=== PATIENT | female | born 1945 | race Caucasian/White ===

== ENCOUNTER 2016-12-22 03:45 | Inpatient (IN) ==
--- NOTE | 2016-12-22 04:31 | PROVIDER DOCUMENTATION ---
HPI-Neurological Disorder - General Chief Complaint: General Adult Stated Complaint: MUSCLE SPASM Time Seen by Provider: 12/22/16 04:01 Source: patient Allergies/Adverse Reactions: Patient Allergies Allergy/AdvReac Type Severity Reaction Status Date / Time Iodinated Contrast Media - AdvReac Severe NAUSEA/VOMI Verified 12/22/16 04:22 Oral and TING Home Medications: Home Medication List Medication Instructions Recorded Confirmed Last Taken Type Albuterol Sulfate Inhaler 2 puff INH 4XDAY PRN PRN #1 inhaler 05/20/14 12/22/16 12/21/16 Rx [Ventolin Hfa] Rivaroxaban [Xarelto] 20 mg PO WSUPPER #30 tablet 05/20/14 12/22/16 12/21/16 Rx Escitalopram [Lexapro] 10 mg PO DAILY #0 tablet 03/12/15 12/22/16 12/21/16 Rx Gabapentin [Neurontin] 300 mg PO TID #0 capsule 03/12/15 12/22/16 12/21/16 Rx Omeprazole [Prilosec] 20 mg PO DAILY@0700 #0 capsule 03/12/15 12/22/16 12/21/16 Rx Diltiazem HCl [Cardizem Cd] 180 mg PO DAILY 10/16/15 12/22/16 12/21/16 History Losartan/Hydrochlorothiazide 1 each PO DAILY 10/16/15 12/22/16 12/21/16 History [Losartan-Hctz 50-12.5 mg Tab] Metoprolol Succinate E.r. [Toprol 50 mg PO DAILY 10/16/15 12/22/16 12/21/16 History Xl] Amiodarone [Cordarone] 200 mg PO BID #0 tablet 10/19/15 12/22/16 12/20/16 Rx Hydrocodone/Acetaminophen [Sharon 1 each PO Q8H PRN PRN #0 10/19/15 12/22/16 Rx 7.5-325 Tablet] Furosemide [Lasix] 40 mg PO DAILY #30 tablet 10/20/15 12/22/16 12/21/16 Rx - History of Present Illness-Neuro Nature of Presenting Problem: 71 yo WF felt well until about 3 pm yesterday when she developed a gross tremor but no motor weakness or change in mentation. Her legs began to hurt around 2 am at which point she called an ambulance. Denies prior history of CVA. Review of Systems - Adult - REVIEW OF SYSTEMS - ADULT Constitutional: reports: no symptoms reported Eyes: reports: no symptoms reported Ears, Nose, Mouth & Throat: reports: no symptoms reported Cardiovascular: reports: no symptoms reported Respiratory: reports: no symptoms reported Gastrointestinal: reports: no symptoms reported Genitourinary: reports: no symptoms reported Musculoskeletal: reports: no symptoms reported Integumentary: reports: no symptoms reported Neurological: reports: see HPI, ataxia, loss of balance, tremors Psychiatric: reports: no symptoms reported Endocrine: reports: no symptoms reported Hematologic/Lymphatic: reports: no symptoms reported Allergic/Immunologic: reports: no symptoms reported Past History - Adult - PAST MEDICAL HISTORY-ADULT Review of Records: reports: Old Records Reviewed, Nursing Assessment Review, Medications Reviewed Major Childhood Illnesses: reports: denies history Cardiovascular: reports: A-Fib, HTN, PR (x2) Respiratory: reports: COPD Gastrointestinal: reports: GERD - PRIOR SURGERIES/PROCEDURES Surgical/Procedure History: reports: hysterectomy, orthopedic (extremity) (left arm Sx), other (heart cath) - IMMUNIZATION STATUS Childhood Immunizations: See Nurse Assessment Flu Vaccine: See Nurse Assessment Physical Exam- Neurological - Physical Exam-Neuro Initial Vital Signs Reviewed: Yes General Appearance: appears well, alert, no apparent distress Eye Exam: bilateral eye: normal inspection HENMT: normal ENT inspection Head Injury: no evidence of injury Neck: non-tender, full range of motion Respiratory: chest non-tender, lungs clear, normal breath sounds Cardiovascular: normal peripheral pulses, regular rate, rhythm Abdominal Exam: non tender, soft, no organomegaly Lymphatic: no adenopathy Extremity: normal range of motion, non-tender communications officer Exam: normal hearing, normal speech, PERRL. negative: abnormal eye position Coordination/Gait: ABN nose to finger (R), ABN nose to finger (L). negative: normal finger to nose, normal gait Motor/Sensory: no motor deficit, no sensory deficit, no pronator drift Neurologic: communications officer II-XII nml as tested, grossly normal Integumentary: normal color, normal turgor Psych/Mental Status: normal mood/affect Progress - PLAN OF CARE/RESULTS Progress/Plan/Lab Results: Vital Signs - 8 hr 12/22/16 04:07 12/22/16 06:07 12/22/16 08:15 Temperature 97.6 F Pulse Rate 56 L 50 L 53 L Respiratory Rate 26 H 19 22 Blood Pressure 125/50 94/61 108/50 O2 Sat by Pulse Oximetry 97 93 L 95 Laboratory Results - last 24 hr 12/22/16 12/22/16 12/22/16 03:59 03:59 05:05 WBC 7.91 RBC 4.08 L Hgb 10.8 L Hct 32.7 L MCV 80.1 L MCH 26.5 L MCHC 33.0 RDW Std Deviation 16.2 H Plt Count 366 MPV 11.8 H Immature Gran % (Auto) 0.3 Neut % (Auto) 56.7 Lymph % (Auto) 32.7 Vance % (Auto) 8.6 Eos % (Auto) 1.1 Baso % (Auto) 0.6 Immature Gran # (Auto) 0.02 Neut # (Auto) 4.48 Lymph # (Auto) 2.59 Vance # (Auto) 0.68 H Eos # (Auto) 0.09 Baso # (Auto) 0.05 Sodium 134 L Potassium 3.0 L Chloride 91 L Carbon Dioxide 25 Anion Gap 18 BUN 29 H Creatinine 2.2 H Estimated GFR/1.73 m2 22 BUN/Creatinine Ratio 13 Glucose 87 Calculated Osmolality 273 Calcium 9.1 Total Bilirubin 0.59 AST 40 H ALT 30 Alkaline Phosphatase 127 H Total Protein 7.2 Albumin 3.9 Globulin 3.3 Albumin/Globulin Ratio 1.2 Urine Source CLEAN CATCH Urine Color YELLOW Urine Turbidity CLEAR Urine pH 5.5 Ur Specific [place] 1.009 Urine Protein NEGATIVE Ur Glucose (Stick) NEGATIVE Ur Ketones (Stick) NEGATIVE Urine Blood NEGATIVE Urine Nitrite NEGATIVE Urine Bilirubin NEGATIVE Urobilinogen Dipstick NORMAL Urine Leukocytes TRACE A Urine WBC (Auto) <10 Urine RBC (Auto) <10 U Epithel Cells (Auto) <10 Urine Bacteria (Auto) NEGATIVE Urine Opiates Screen Ur Oxycodone Screen Ur Methadone, Qual Ur Barbiturates Screen Ur Phencyclidine Scrn Ur Amphetamines Screen U Benzodiazepines Scrn Urine Cocaine Screen U Cannabinoids Screen 12/22/16 05:05 WBC RBC Hgb Hct MCV MCH MCHC RDW Std Deviation Plt Count MPV Immature Gran % (Auto) Neut % (Auto) Lymph % (Auto) Vance % (Auto) Eos % (Auto) Baso % (Auto) Immature Gran # (Auto) Neut # (Auto) Lymph # (Auto) Vance # (Auto) Eos # (Auto) Baso # (Auto) Sodium Potassium Chloride Carbon Dioxide Anion Gap BUN Creatinine Estimated GFR/1.73 m2 BUN/Creatinine Ratio Glucose Calculated Osmolality Calcium Total Bilirubin AST ALT Alkaline Phosphatase Total Protein Albumin Globulin Albumin/Globulin Ratio Urine Source Urine Color Urine Turbidity Urine pH Ur Specific [place] Urine Protein Ur Glucose (Stick) Ur Ketones (Stick) Urine Blood Urine Nitrite Urine Bilirubin Urobilinogen Dipstick Urine Leukocytes Urine WBC (Auto) Urine RBC (Auto) U Epithel Cells (Auto) Urine Bacteria (Auto) Urine Opiates Screen NONE DETECTED Ur Oxycodone Screen NONE DETECTED Ur Methadone, Qual NONE DETECTED Ur Barbiturates Screen NONE DETECTED Ur Phencyclidine Scrn NONE DETECTED Ur Amphetamines Screen NONE DETECTED U Benzodiazepines Scrn NONE DETECTED Urine Cocaine Screen NONE DETECTED U Cannabinoids Screen PRESUMPTIVE POSITIVE A Orders Category Date Time Status Regular Diet Diet 12/22/16 07:25 Active HEAD W/O CONTRAST [CT] Stat Exams 12/22/16 04:20 Completed CBC WITH ELECTRONIC DIFF [HEME] Stat Lab 12/22/16 03:59 Completed COMPREHENSIVE METABOLIC PANEL [CHEM] Stat Lab 12/22/16 03:59 Completed UA NIMS W/REFLEX CULT [URINALYSIS] Stat Lab 12/22/16 05:05 Completed URINE DRUG SCREEN Stat Lab 12/22/16 05:05 Completed Transfer/Admit Order [TRANSFER] Routine Transfer 12/22/16 08:23 Ordered Result Diagrams: 12/22/16 03:59 12/22/16 03:59 Departure - Departure Date of Disposition Decision: 12/22/16 Time of Disposition Decision: 08:29 DIAGNOSIS: Tremors of nervous system, Weakness Disposition: ADMITTED INPATIENT 09 Certified Medical Emergency: Emergent Condition: Stable - Critical Care Note This patient required my direct & personal management of CC.: No Attestation - Physician/ CAYDEN Attestation The physician spent face to face time with patient:: Yes Advanced Practice Provider documentation review:: The physician spent face to face time with this patient and agrees with all MLP documentation, treatment, and medical decision making by the MLP. See provider notes for further information.
[2016-12-22 04:37] LABS: MANUAL DIFF NEEDED? NO
[2016-12-22 05:31] LABS: ALBUMIN 3.9 g/dL (3.5-5.0); CALCIUM 9.1 mg/dL (8.8-10.2); TOTAL BILIRUBIN 0.59 mg/dL (0.20-1.00); TOTAL PROTEIN 7.2 g/dL (6.3-8.3)
[2016-12-22 05:35] LABS: URINE CULTURE NEEDED? NO; URINE MICRO REVIEW NEEDED? NO; URINE SOURCE CLEAN CATCH
[2016-12-22 05:40] LABS: BASO% 0.6 % (0.0-0.8); EOS# 0.09 X1000 (0.0-0.7); EOS% 1.1 % (0.0-10.0); HEMATOCRIT 32.7 % (37.0-47.0); HEMOGLOBIN 10.8 g/dL (12.0-16.0); IMM GRAN# 0.02 X1000 (0.0-0.04); IMM GRAN% 0.3 % (0.0-0.5); LYMPH# 2.59 X1000 (1.2-3.4); LYMPH% 32.7 % (20.5-51.1); MCH 26.5 PG (27-31); MCV 80.1 FL (81-99); MONO# 0.68 X1000 (0.11-0.59); MONO% 8.6 % (1.7-9.3); MPV 11.8 FL (7.4-10.4); NEUT% 56.7 % (42.2-75.2); PLT 366 X1000 (130-400); RBC 4.08 XMIL (4.2-5.4)
[2016-12-22 05:40] LABS: BILIRUBIN URINE NEGATIVE (NEGATIVE); BLOOD URINE NEGATIVE (NEGATIVE); COLOR YELLOW; GLUCOSE URINE NEGATIVE (NEGATIVE); LEUKOCYTES URINE TRACE (NEGATIVE); NITRITE URINE NEGATIVE (NEGATIVE); PH URINE 5.5; PROTEIN URINE NEGATIVE (NEGATIVE); SP GRAVITY URINE 1.009; TURBIDITY URINE CLEAR (CLEAR); UROBILINOGEN URINE NORMAL (NORMAL)
[2016-12-22 05:41] LABS: UR EPITHELIAL CELLS <10 /HPF (<10); URINE BACTERIA NEGATIVE /HPF; URINE RBC <10 /HPF (<10); URINE WBC <10 /HPF (<10)
--- NOTE | 2016-12-22 07:40 | Diag Imaging Result Doc PS360 ---
HEAD W/O CONTRAST - 12/22/2016 INDICATION: acute onset gross tremor around 3 pm TECHNIQUE: A CT dose reduction protocol was used. COMPARISON: None FINDINGS: The ventricles and sulci are normal in size and contour. There is moderate cerebral white matter hypodensity compatible with chronic microvascular disease. This also affects the urmila. There is an old lacunar in the right basal ganglia. No intracranial mass or hemorrhage. The skull is intact. The sinuses, mastoids, and middle ears are clear. IMPRESSION: Moderate chronic appearing ischemic changes of the brain. No acute abnormality. Electronically signed by Venancio Emery 12/22/2016 7:37 AM
[2016-12-22] MEDS ORDERED: ANTIVERT PO ONE (07:41)
[2016-12-22 07:42] LABS: UR AMPHETAMINES QUAL NONE DETECTED (NONE DETECT); UR BARBITUATES QUAL NONE DETECTED (NONE DETECT); UR BENZODIAZEPIN QUAL NONE DETECTED (NONE DETECT); UR CANNABINOIDS QUAL PRESUMPTIVE POSITIVE (NONE DETECT); UR COCAINE QUAL NONE DETECTED (NONE DETECT); UR METHADONE QUAL NONE DETECTED (NONE DETECT); UR OPIATES QUAL NONE DETECTED (NONE DETECT); UR OXYCODONE QUAL NONE DETECTED (NONE DETECT); UR PCP QUAL NONE DETECTED (NONE DETECT)
[2016-12-22] MEDS ORDERED: NS 1,000 ML IV ONE (09:08)
[2016-12-22] MEDS ORDERED: ZOFRAN IV PRN (09:08)
[2016-12-22] MEDS ORDERED: NORCO-7.5 PO ONE (09:08)
--- NOTE | 2016-12-22 10:00 | Diag Imaging Result Doc PS360 ---
MRI BRAIN W/O CONTRAST - 12/22/2016 INDICATION: tremor COMPARISON: Head CT earlier 12/22/2016 FINDINGS: There is no area of restricted diffusion. There is moderate hyperintensity of cerebral white matter including the cerebral hemispheres, midbrain and urmila. There is an old lacunar at the right basal ganglia. No intracranial mass or hemorrhage. The ventricles and sulci are normal. Midline structures including pituitary and optic chiasm are grossly normal. 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 No acute abnormality. Electronically signed by Venancio Emery 12/22/2016 9:58 AM
[2016-12-22] MEDS ORDERED: VENTOLIN HFA INH PRN (12:23)
[2016-12-22] MEDS: NEURONTIN PO SCH ×2 (14:20→19:58)
--- NOTE | 2016-12-22 14:56 | Diag Imaging Result Doc PS360 ---
CHEST-2 VIEWS - 12/22/2016 INDICATION: hypoxia TECHNIQUE: COMPARISON: 10/05/2016 FINDINGS: The lungs are normally expanded and clear. Heart size and mediastinal contours are normal. No pneumothorax or pleural effusion. Stable biapical pleural scarring. Stable large calcified granulomas in the right paratracheal and precarinal nodes. IMPRESSION: Negative exam. Electronically signed by Venancio Emery 12/22/2016 2:54 PM
--- NOTE | 2016-12-22 15:35 | HISTORY AND PHYSICAL ---
CHIEF COMPLAINT: Tremulousness. HISTORY OF PRESENT ILLNESS: Ms. Jacobs is a 71-year-old female patient complaining of being tremulous all over for the last 2 days. The patient claims it got worse last night. It was uncontrollable. Complaining of pain in the left hip, bilateral leg, neck and headache. The patient claims she did not have this type of episode in the past. She came to the emergency room. Evaluated by ER physician. Considering her new onset tremulousness, acute on chronic kidney disease, vague history, ER physician got concerned. Her initial workup in the ER her CT scan did not show any acute changes. They recommended MRI and patient was admitted for further care. The patient claims she was not feeling well at all last 2 days. She had typical chest pain. Some palpitations. She does have chronic cough with scanty sputum production. No hemoptysis. She was getting short of breath with exertion. The patient was feeling weak, dull headache. No typical chest pain or palpitation. Oral intake was poor. No nausea or vomiting. She denied any diarrhea, blood or mucus in the stool. No dysuria or hematuria. The patient claims she still has pain medication at home and she was taking it. No focal weakness. No further history available at this time. ALLERGIES: Iodinated contrast media. HOME MEDICATION: Includes amiodarone. The patient is on Prilosec, diltiazem, Lexapro, Lasix, Neurontin, [place], Hyzaar, beta chao, Xarelto. PAST MEDICAL HISTORY: Atrial fibrillation, hypertension, osteoarthritis, history suggestive of cardiomyopathy and congestive heart failure, situational depression, osteoarthritis, gastritis and reflux disease. PERSONAL HISTORY: Single. Nonsmoker. Denied alcohol or substance abuse. REVIEW OF SYSTEMS: As per HPI. Otherwise unobtainable. FAMILY HISTORY: Significant for mother who had Alzheimer's type dementia and father of Parkinson's disease. REVIEW OF SYSTEMS: As per HPI. PHYSICAL EXAMINATION: GENERAL: Elderly white female patient, in mild distress. VITAL SIGNS: On admission blood pressure 125/50, pulse 56, respiration 26, temperature 97.6 degrees. SKIN: Senile turgor. No rash or petechiae. HEENT: Head atraumatic, normocephalic. [place] conjunctivae. Anicteric sclerae. Extraocular muscle movement normal. Fundus cannot be penetrated. Good oral hygiene. No tonsillopharyngeal congestion or exudate. Ears and nose benign. NECK: Supple. No JVD, thyromegaly or lymphadenopathy. CHEST: Bilateral good air entry present. Bilateral occasional wheezing. No rales. CARDIOVASCULAR: S2 irregularly irregular, bradycardia, 2/6 systolic murmur at the apex. No gallop or thrill. ABDOMEN: Soft, globular. Bowel sounds present. No organomegaly or mass. EXTREMITIES: No cyanosis, clubbing. No acute DVT. VENEER JOINTER: Alert, awake able to move all 4 limbs. LAB DATA: Revealed WBC count 7.91, hemoglobin 10.8, hematocrit 32.7, platelet count 366,000. Potassium was 3, sodium 134, BUN 29, creatinine 2.2. Alkaline phosphatase 127. Urinalysis was benign. Urine drug screen was positive for marijuana. Her CT scan of the brain and MRI results of the brain noted. MRI revealed chronic microvascular white matter disease and an old lacunar infarct. No acute abnormality. Chest x-ray did not reveal any pneumonia or acute disease. CONSIDERATION: 1. Tremor. 2. Acute kidney injury. 3. Possibility of pain medication withdrawal cannot be ruled out. 4. Congestive heart failure. 5. Atrial fibrillation. 6. COPD. 7. Hypertension. 8. Chronic kidney disease. PLAN: Admit the patient. IV hydration. Patient does have hypokalemia. Close observation. Resume her pain medicine. Overall plan discussed with the patient. She is in agreement. Fall precaution. cc: Neo Alfaro MD
--- NOTE | 2016-12-22 15:46 | EKG Report ---
Test Performed on : 12/22/2016 3:19:52 PM Test Reason : CP Blood Pressure : / mmHG Vent. Rate : 048 BPM Atrial Rate : 048 BPM P-R Int : 210 ms QRS Dur : 096 ms QT Int : 534 ms P-R-T Axes : 048 015 046 degrees QTc Int : 477 ms Sinus bradycardia. with 1st degree AV block. ST \T\ T wave abnormality, consider lateral ischemia Prolonged QT Abnormal ECG When compared with ECG of 04-OCT-2016 23:42, T wave inversion more evident in Anterior leads T wave inversion less evident in Lateral leads QT has lengthened Confirmed by Baron ESPINAL, Sergio Leonard ([id number]) on 12/26/2016 2:14:19 PM
[2016-12-22] MEDS: XARELTO PO SCH (16:59)
[2016-12-22] MEDS: SYMBICORT 160/4.5 MICROGM INHALER INH SCH (19:22)
[2016-12-22] MEDS: NORCO-7.5 PO PRN (19:57)
[2016-12-22] MEDS: CORDARONE PO SCH (19:58)
[2016-12-22] MEDS ORDERED: CORDARONE PO SCH (21:00)
[2016-12-22] MEDS: XANAX PO PRN (21:25)
[2016-12-22 21:42] LABS: CK INDEX 0.9 (0.0-2.5); CK-MB 10.6 ng/mL (0.0-5.0)
[2016-12-23] MEDS: NEURONTIN PO SCH ×4 (00:48→21:12)
[2016-12-23 06:43] LABS: MANUAL DIFF NEEDED? NO
[2016-12-23 06:53] LABS: BASO% 0.5 % (0.0-0.8); EOS# 0.12 X1000 (0.0-0.7); EOS% 2.1 % (0.0-10.0); HEMATOCRIT 29.9 % (37.0-47.0); HEMOGLOBIN 9.5 g/dL (12.0-16.0); LYMPH% 31.4 % (20.5-51.1); MCHC 31.8 g/dL (33-37); MCV 81.9 FL (81-99); MONO# 0.57 X1000 (0.11-0.59); MONO% 9.9 % (1.7-9.3); MPV 11.6 FL (7.4-10.4); NEUT% 56.1 % (42.2-75.2); PLT 289 X1000 (130-400); RBC 3.65 XMIL (4.2-5.4)
[2016-12-23 07:08] LABS: ALBUMIN 3.2 g/dL (3.5-5.0); CALCIUM 8.4 mg/dL (8.8-10.2); POTASSIUM 3.8 mmol/L (3.5-5.1); TOTAL BILIRUBIN 0.42 mg/dL (0.20-1.00); TOTAL PROTEIN 6.1 g/dL (6.3-8.3)
[2016-12-23 08:04] LABS: FREE T4 0.91 ng/dL (0.93-1.70)
[2016-12-23] MEDS: CARDIZEM CD PO SCH (08:34)
[2016-12-23] MEDS: TOPROL XL PO SCH (08:35)
[2016-12-23] MEDS: LEXAPRO PO SCH (08:35)
[2016-12-23] MEDS: CORDARONE PO SCH (08:35)
[2016-12-23] MEDS ORDERED: LASIX PO SCH (09:00)
[2016-12-23] MEDS ORDERED: HYZAAR 50/12.5 MG PO SCH (09:00)
[2016-12-23] MEDS: SYMBICORT 160/4.5 MICROGM INHALER INH SCH ×2 (09:12→19:33)
[2016-12-23] MEDS: POTASSIUM CHLORIDE 10 MEQ in NS 1,000 ML IV SCH ×2 (11:20→23:24)
--- NOTE | 2016-12-23 11:52 | PROGRESS NOTE ---
DATE: 12/23/2016 SUBJECTIVE: Ms. Jacobs is doing fair. She still has some tremulousness. No high-grade fever or chills. Mild cough. No expectoration. Denied any nausea or vomiting. OBJECTIVE: Vital Signs: Noted. Neck: Supple. No JVD. Lungs: Bilateral good air entry present. Cardiovascular: S1 and S2, irregularly irregular. Abdomen: Soft, nontender. Bowel sounds present. Extremities: No cyanosis or clubbing. No acute DVT. Central Nervous System: Alert, awake. Able to move all 4 limbs. ASSESSMENT AND DISCUSSION: Patient's problems include: 1. Acute kidney injury. Her total CPK was elevated, suggestive of rhabdomyolysis. Tremulousness could be due to withdrawal from her pain medication. 2. Chronic obstructive pulmonary disease. 3. Atrial fibrillation. 4. Chronic kidney disease. PLAN: I am going to advance gentle hydration. Close observation. Fall precautions. Continue bronchodilator treatment. Overall plan discussed with the patient. She is in agreement. cc: Neo Alfaro MD
[2016-12-23] MEDS: XARELTO PO SCH (16:54)
[2016-12-23] MEDS: NORCO-7.5 PO PRN (18:54)
[2016-12-23] MEDS: XANAX PO PRN (21:23)
[2016-12-24] MEDS: SYMBICORT 160/4.5 MICROGM INHALER INH SCH ×2 (08:15→19:40)
[2016-12-24] MEDS: TOPROL XL PO SCH (08:47)
[2016-12-24] MEDS: NEURONTIN PO SCH ×2 (08:47→14:35)
[2016-12-24] MEDS: XANAX PO PRN (08:48)
[2016-12-24] MEDS: LEXAPRO PO SCH (08:48)
[2016-12-24] MEDS: CORDARONE PO SCH (08:48)
[2016-12-24] MEDS: CARDIZEM CD PO SCH (08:48)
[2016-12-24] MEDS: NORCO-7.5 PO PRN ×2 (08:48→17:20)
[2016-12-24] MEDS: POTASSIUM CHLORIDE 10 MEQ in NS 1,000 ML IV SCH (11:06)
[2016-12-24] MEDS: XARELTO PO SCH (16:00)
[2016-12-24 22:39] LABS: CK INDEX 1.1 (0.0-2.5); CK-MB 5.44 ng/mL (0.0-5.0)
[2016-12-25] MEDS: POTASSIUM CHLORIDE 10 MEQ in NS 1,000 ML IV SCH ×2 (00:38→10:46)
--- NOTE | 2016-12-25 03:51 | PROGRESS NOTE ---
DATE: 12/24/2016 SUBJECTIVELY: Ms. Santana is doing better. She is still complaining of being weak, at times tremulous. Her blood pressure was staying low normal. I am holding her blood pressure medicine and diuretics. Blood pressure is getting better. Patient blood work done yesterday did reveal rhabdomyolysis. I increased her IV fluid. No chest pain or palpitation. Mild cough. No expectoration. No dysuria or hematuria. OBJECTIVE: Vital Signs: Noted. Neck: Supple. No JVD. Lungs: Bibasilar crepitations. Heart: Regular. Abdomen: Soft, globular. Bowel sounds present. Extremities: No cyanosis, clubbing. No acute DVT. 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 CONSIDERATION: Acute kidney injury. Possible rhabdomyolysis. COPD. Atrial fibrillation. Tremulousness. I am going to repeat blood work tomorrow. If clinical condition permits will plan discharging patient home tomorrow. cc: Neo Alfaro MD
[2016-12-25] MEDS: NEURONTIN PO SCH ×4 (05:11→17:29)
--- NOTE | 2016-12-25 05:57 | EKG Report ---
Test Performed on : 12/24/2016 8:49:52 PM Test Reason : BRDYCARDIA Blood Pressure : / mmHG Vent. Rate : 043 BPM Atrial Rate : 043 BPM P-R Int : 214 ms QRS Dur : 094 ms QT Int : 548 ms P-R-T Axes : 050 017 079 degrees QTc Int : 463 ms Marked sinus bradycardia. with 1st degree AV block. Possible Inferior infarct , age undetermined ST \T\ T wave abnormality, consider anterior ischemia Abnormal ECG When compared with ECG of 22-DEC-2016 15:19, (Unconfirmed) Nonspecific T wave abnormality no longer evident in Inferior leads Nonspecific T wave abnormality, worse in Lateral leads Confirmed by Baron ESPINAL, Sergio Leonard ([id number]) on 12/26/2016 2:15:40 PM
[2016-12-25 06:05] LABS: MANUAL DIFF NEEDED? NO
[2016-12-25 06:18] LABS: BASO% 0.4 % (0.0-0.8); EOS# 0.21 X1000 (0.0-0.7); EOS% 2.6 % (0.0-10.0); HEMATOCRIT 29.8 % (37.0-47.0); HEMOGLOBIN 9.5 g/dL (12.0-16.0); LYMPH# 2.64 X1000 (1.2-3.4); LYMPH% 32.1 % (20.5-51.1); MCH 26.9 PG (27-31); MCHC 31.9 g/dL (33-37); MCV 84.4 FL (81-99); MONO% 6.1 % (1.7-9.3); MPV 11.7 FL (7.4-10.4); NEUT% 58.8 % (42.2-75.2); PLT 270 X1000 (130-400); RBC 3.53 XMIL (4.2-5.4)
[2016-12-25 06:36] LABS: ALBUMIN 3.2 g/dL (3.5-5.0); CALCIUM 8.2 mg/dL (8.8-10.2); POTASSIUM 4.1 mmol/L (3.5-5.1); TOTAL BILIRUBIN 0.34 mg/dL (0.20-1.00); TOTAL PROTEIN 5.9 g/dL (6.3-8.3)
[2016-12-25 06:54] LABS: CK INDEX 1.3 (0.0-2.5); CK-MB 7.09 ng/mL (0.0-5.0)
--- NOTE | 2016-12-25 07:34 | EKG Report ---
Test Performed on : 12/25/2016 06:18:50 AM Test Reason : bradycardia Blood Pressure : / mmHG Vent. Rate : 049 BPM Atrial Rate : 049 BPM P-R Int : 210 ms QRS Dur : 098 ms QT Int : 510 ms P-R-T Axes : 069 012 063 degrees QTc Int : 460 ms Sinus bradycardia. with 1st degree AV block. Possible Inferior infarct (cited on or before 24-DEC-2016) Abnormal ECG When compared with ECG of 24-DEC-2016 20:49, (Unconfirmed) Nonspecific T wave abnormality now evident in Inferior leads Confirmed by Sergio Draper MD ([id number]) on 12/26/2016 2:15:52 PM
--- NOTE | 2016-12-25 07:39 | PROGRESS NOTE ---
DATE: 12/25/2016 SUBJECTIVE: Ms. Jacobs is doing fair. Yesterday, patient was significantly bradycardic. She was feeling weak and pale. We decided to transfer her to ICU as there was no CIC bed available. The patient is doing better. I am holding her beta chao. Her blood pressure was low normal. I am holding her Hyzaar. Patient is doing better. Her heart rate is staying around 42-50. Blood pressure is improving. No typical chest pain or palpitations. Does have cough with scanty sputum production. No nausea or vomiting. Oral intake is good. PHYSICAL EXAMINATION: Vital Signs: Her vital signs noted. Neck: Supple. No JVD. Lungs: Bibasilar crepitation. Heart: S1 and S2 heard. Abdomen: Soft, globular. Bowel sounds present. Extremities: No cyanosis, clubbing. No acute DVT. MID TEACHER: Alert, awake. Able to move all 4 limbs. LAB DATA: Done today, hemoglobin 9.5, hematocrit 29.8, platelet count 270,000, WBC count 8.23. Electrolytes fairly benign. BUN 25, creatinine 1.6. Cardiac isoenzymes negative. CPK was elevated and CK-MB but troponin is normal. Serum magnesium was 2.2 a few days ago. CONSIDERATION: 1. Bradyarrhythmia. 2. Hypertension. 3. Rhabdomyolysis. 4. Chronic obstructive pulmonary disease. 5. Acute kidney injury. 6. Osteoarthritis. 7. Atrial fibrillation. PLAN: I did a cardiology consult with Dr. Fishman who knows the patient. I am going to resume her Cozaar. Continue rest of the treatment. IV hydration. Close observation. cc: Neo Alfaro MD
[2016-12-25] MEDS: CORDARONE PO SCH (08:25)
[2016-12-25] MEDS: COZAAR PO SCH ×2 (08:42→10:47)
[2016-12-25] MEDS: LEXAPRO PO SCH ×2 (08:42→09:13)
[2016-12-25] MEDS: NORVASC PO SCH ×3 (08:42→20:58)
[2016-12-25 08:46] LABS: IRON SATURATION 9 %; TIBC 303 ug/dL; TOTAL IRON 27 ug/dL (49-151); UNBOUND IRON 276 ug/dL (112-346)
[2016-12-25] MEDS ORDERED: CARDIZEM PO SCH ×2 (09:00)
[2016-12-25] MEDS ORDERED: CARDIZEM CD PO SCH (09:00)
--- NOTE | 2016-12-25 09:15 | CONSULTATION ---
DATE OF CONSULTATION: 12/25/2016 REQUESTING PHYSICIAN: Dr. Alfaro REASON FOR CONSULTATION: Persistent bradycardia. HISTORY OF PRESENT ILLNESS: Ms. Jacobs is a 71-year-old female known to me, who presented to the hospital for admission on 12/22/2016 because she had not been doing well for about 3 weeks or so. She has been feeling increasingly shaky and weak. She has not had any pain in the chest; however, she does have chronic pains in the neck and the spine. She has arthritic pains in the extremities, walks with a walker, limited to ambulate. Upon admission, the patient was tested. Her total CPK was 1175. Alkaline phosphatase was 127, AST was 40. CKMB was 10.6. Subsequent measurements showed CK of 485 and then 551. All of the troponins are negative. Her albumin is low. Her TSH is elevated at 6.18. Free T4 is low at 0.91. Initial sodium was 134, potassium 3.0. The patient yesterday developed significant bradycardia in the upper 30s and was transferred to ICU for observation. She has not noticed any development of chest pain. She is awake. She has chronic exertional dyspnea. PAST MEDICAL HISTORY: Positive for emphysema. I have seen her at my office, last time back in 04/2016. At that time, we acknowledged that she had hypertension. She had paroxysmal atrial fibrillation. She has had previous syncope, COPD. The patient has had an echocardiogram through my office on 03/10/2015 that showed EF of 60% to 65%, moderate RA enlargement and LA enlargement, that was a DELROY. There was no evidence of intracardiac thrombus. Subsequently we did CT scan of the chest that showed extensive emphysema with atherosclerosis at the level of the aorta with mild calcification of coronary arteries. The patient has not taken any stress test recently. She has no history of myocardial infarction or stroke. PAST SURGICAL HISTORY: Positive for pelvic surgery, arm surgery. SOCIAL HISTORY: She is a . She has 5 children, lives with 2 of them. She is on disability. She is not a smoker, not a drinker. FAMILY HISTORY: Noncontributory. HOME MEDICATIONS: At the time of the present admission included Xarelto 20 mg at bedtime, Prilosec 20 mg daily, metoprolol ER 50 mg daily, losartan 50/12.5 daily, hydrocodone with acetaminophen 7.5/325 every 8 hours, gabapentin 300 three times a day, furosemide 40 mg daily, Lexapro 10 mg daily, diltiazem 180 daily, amiodarone 200 twice a day, albuterol 2 puffs 4 times a day. ALLERGIES: She is allergic to iodine dye. REVIEW OF SYSTEMS: Chronically tired and exertional dyspnea. Walks with a cane. Limited to ambulate because of arthritic pains. Multiple systems were checked, pulmonary, cardiovascular, neurologic, psychiatric, skin, hearing, visual, gastrointestinal, musculoskeletal, metabolic, and no new information beyond what I have already reported. PHYSICAL EXAMINATION: Today blood pressure is 119/76, temperature 97.9, pulse 46, respirations 16. She is awake, elderly, in no distress. HEENT is unremarkable. Chest reveals diminished breath sounds bilaterally. Heart sounds are regular and rhythmic, bradycardic. Abdomen: Soft, nontender. No masses. No hepatomegaly. Extremities showed slightly decreased pulses, no edema. Neurologic: Follows commands, moves all 4 extremities. DIAGNOSTIC DATA: Blood work from 12/25/2016 showed hemoglobin 9.5, hematocrit 29.8, MCV is 84, RDW is 16.6. Sodium is 139, potassium 4.1, BUN is 25, creatinine 1.6. IMPRESSION: 1. The patient presents with nonspecific symptoms of recurrent shakiness and weakness. She does have elevation of the CPK muscle enzyme. Whether this represents some sort of myopathy remains to be determined. 2. History of paroxysmal atrial fibrillation. 3. Sinus bradycardia, questionable symptomatic bradycardia. 4. History of hypertension. 5. Chronic kidney disease. RECOMMENDATIONS: At this point in time, I would suggest to put on hold all of her antiarrhythmic medications. We will deal with her blood pressure by using amlodipine and maybe another vasodilator. I would suggest to obtain a 24-hour urine collection for creatinine clearance and protein. We will check iron levels. She does have anemia which could be potentially compounded by iron deficiency. The indices do not support that. She has a slight degree of hypothyroidism, probably related to the use of amiodarone. Amiodarone really needs to be dosed at a minimum of 200 mg a day and no more than that to minimize side effects. Further advice will be forthcoming. Thank you for the opportunity to participate in her evaluation. cc: JustinMD Neo Dill MD
[2016-12-25] MEDS: DUONEB (A & A) INH SCH ×4 (09:18→21:25)
[2016-12-25] MEDS: SYMBICORT 160/4.5 MICROGM INHALER INH SCH ×2 (11:27→21:25)
[2016-12-25] MEDS ORDERED: VENOFER IV ONE (17:03)
[2016-12-25] MEDS: XARELTO PO SCH (17:29)
[2016-12-25] MEDS ORDERED: VENOFER 200 MG in NS 150 ML IV ONE (18:00)
[2016-12-25] MEDS ORDERED: NORCO-7.5 PO PRN (20:03)
[2016-12-25] MEDS: NORCO-7.5 PO PRN (20:58)
[2016-12-25] MEDS ORDERED: LASIX IV ONE (22:50)
[2016-12-25 23:15] LABS: ALLEN TEST YES; BE -2.1 mmoll (-3.0-3.0); BLOOD TYPE ARTERIAL; DRAW SITE R RADIAL; METHB 0.4 % (0.0-1.5); O2(CT) 12.9 mL/dL (15.0-23.0); PCO2(98.6) 41 mmHg (35-45); PO2(98.6) 76 mmHg (60-100); SAMPLE BLOOD; SAO2 97.4 % (95.0-100.0); THB 9.5 g/dL (11.5-17.4); pH(98.6) 7.36 (7.35-7.45)
[2016-12-25 23:16] LABS: MODALITY NRB
[2016-12-25] MEDS ORDERED: LASIX ONE (23:46)
[2016-12-26] MEDS: DUONEB (A & A) INH SCH ×4 (03:55→22:20)
--- NOTE | 2016-12-26 06:08 | EKG Report ---
Test Performed on : 12/26/2016 05:09:45 AM Test Reason : bradycardia Blood Pressure : / mmHG Vent. Rate : 063 BPM Atrial Rate : 063 BPM P-R Int : 190 ms QRS Dur : 100 ms QT Int : 494 ms P-R-T Axes : 069 028 026 degrees QTc Int : 505 ms Normal sinus rhythm. Inferior-posterior infarct (cited on or before 24-DEC-2016) Abnormal ECG When compared with ECG of 25-DEC-2016 06:18, (Unconfirmed) Nonspecific T wave abnormality, improved in Inferior leads Confirmed by Baron ESPINAL, Sergio Leonard ([id number]) on 12/26/2016 2:17:01 PM
[2016-12-26] MEDS ORDERED: ROCEPHIN 1 GM/NS 1 GM/50 ML IVPB IV ONE (06:40)
[2016-12-26 06:53] LABS: MANUAL DIFF NEEDED? NO
[2016-12-26 07:01] LABS: BASO% 0.4 % (0.0-0.8); EOS# 0.06 X1000 (0.0-0.7); EOS% 0.7 % (0.0-10.0); HEMATOCRIT 28.5 % (37.0-47.0); LYMPH# 1.25 X1000 (1.2-3.4); LYMPH% 13.6 % (20.5-51.1); MCH 26.2 PG (27-31); MCHC 31.6 g/dL (33-37); MCV 83.1 FL (81-99); MONO# 0.46 X1000 (0.11-0.59); MPV 11.2 FL (7.4-10.4); NEUT% 80.3 % (42.2-75.2); PLT 270 X1000 (130-400); RBC 3.43 XMIL (4.2-5.4)
[2016-12-26 07:26] LABS: ALBUMIN 3.4 g/dL (3.5-5.0); CALCIUM 8.4 mg/dL (8.8-10.2); POTASSIUM 3.7 mmol/L (3.5-5.1); TOTAL BILIRUBIN 0.54 mg/dL (0.20-1.00); TOTAL PROTEIN 6.4 g/dL (6.3-8.3)
[2016-12-26] MEDS: NORCO-7.5 PO PRN ×2 (07:30→21:15)
[2016-12-26] MEDS: SOLU-MEDROL IV SCH ×3 (07:30→23:04)
[2016-12-26] MEDS: PROTONIX IV SCH (07:30)
[2016-12-26] MEDS: SODIUM CHLORIDE 0.9% INJ SCH (07:30)
--- NOTE | 2016-12-26 07:31 | Diag Imaging Result Doc PS360 ---
CHEST-PORTABLE - 12/25/2016 INDICATION: decreased o2sat TECHNIQUE: COMPARISON: 12/22/2016 FINDINGS: There is slight cardiomegaly. There are new, diffuse bilateral, predominantly interstitial infiltrates. IMPRESSION: Cardiomegaly and extensive pulmonary edema. Electronically signed by Venancio Emery 12/26/2016 7:29 AM
[2016-12-26 07:48] LABS: CK INDEX 1.1 (0.0-2.5); CK-MB 3.79 ng/mL (0.0-5.0)
[2016-12-26] MEDS ORDERED: VENOFER IV ONE (08:26)
[2016-12-26] MEDS: LOPRESSOR PO SCH ×3 (08:52→20:11)
[2016-12-26] MEDS: LEXAPRO PO SCH (08:52)
[2016-12-26] MEDS: NORVASC PO SCH ×2 (08:52→21:16)
[2016-12-26] MEDS: CORDARONE PO SCH (08:52)
[2016-12-26] MEDS: COZAAR PO SCH (08:55)
[2016-12-26] MEDS: NEURONTIN PO SCH ×3 (08:55→17:13)
--- NOTE | 2016-12-26 08:55 | PROGRESS NOTE ---
DATE: 12/26/2016 SUBJECTIVE: Ms. Jacobs had shortness of breath last night. Her oxygen saturation was dropping. She required much higher concentration of oxygen. The patient had a chest x-ray done which did reveal pulmonary congestion and possible fluid overload. No nausea or vomiting. No high-grade fever or chills. The patient does have cough with expectoration. The patient does have underlying COPD. OBJECTIVE: Vital signs: Reviewed. Neck: Supple. No JVD. Lungs: Bilateral good air entry present. Few expiratory wheezes. CVS: S1 and S2 heard. A 2/6 systolic murmur at the apex. Abdomen: Soft, globular. Bowel sounds present. Extremities: No cyanosis, clubbing. Patient does have evidence of extravasation of IV with some redness on the left forearm. REPRESENTATIVE PERSONAL SERVICE: Alert, awake. Able to move all 4 limbs. CONSIDERATIONS: 1. Acute hypoxemic respiratory failure. 2. Fluid overload. 3. Chronic obstructive pulmonary disease exacerbation. 4. Bradyarrhythmia, improving. 5. Atrial fibrillation. 6. Bradycardia. 7. Tremor. 8. Hypertension. PLAN: The patient's blood pressure is stable. I added steroid, IV antibiotics, pulmonary toilet. We will continue current treatment. Close observation. Overall plan discussed with the patient. We will continue monitoring her in the ICU. cc: Neo Alfaro MD
[2016-12-26] MEDS: SYMBICORT 160/4.5 MICROGM INHALER INH SCH ×2 (09:06→22:20)
--- NOTE | 2016-12-26 09:20 | PROGRESS NOTE ---
DATE: 12/26/2016 CHIEF COMPLAINT: Bradycardia, weakness, and shortness of breath. SUBJECTIVE: Ms. Jacobs is feeling better. Her pulse rate has risen to 65. She is not having any major discomfort and now her blood pressure is better controlled. OBJECTIVE: Vital Signs: Right now temperature is 99.2, pulse 65, blood pressure 133/78, and respirations 20. General: She is awake, alert, oriented, and in no distress. HEENT: Unremarkable. Chest: Diminished breath sounds bilaterally. No wheezing. Cardiovascular: Heart sounds are regular and rhythmic. No gallop or murmur. Abdomen: The abdomen is nontender. Extremities: The extremities show no edema. LABORATORY DATA: Blood work shows a sodium of 140, potassium 3.7, BUN 19, and creatinine 1.4. Hemoglobin is 9 and white count 9,190. MCV is 83. RDW is 16.4. The patient does have iron deficiency on blood work from 2 days ago. IMPRESSION: 1. Patient with bradycardia secondary to medication effect. 2. Renal dysfunction, acute on chronic. 3. Iron deficiency anemia plus multifactorial. 4. Advanced chronic obstructive pulmonary disease. RECOMMENDATIONS: At this point in time we will try tiny doses of beta blockers and resume low dose of amiodarone. We will give her extra IV iron. We will see how she does over the next day or two. She may be transferred to the medical floor now. Thank you again for the opportunity to participate in her evaluation. cc: MD Neo Morin MD
[2016-12-26] MEDS ORDERED: VENOFER 200 MG in NS 150 ML IV ONE (09:30)
[2016-12-26 10:08] LABS: HOURS 24 Hrs
[2016-12-26 11:33] LABS: UR CREATININE 20.9 mg/dL (11-20); UR PROTEIN < 4.0 mg/dL
[2016-12-26 11:40] LABS: CREATININE CLEARANCE 37 mL/MIN (75-115); UR CREATININE TOTAL 752.4 mg/24 (600-1600)
[2016-12-26] MEDS: XANAX PO PRN (13:09)
[2016-12-26] MEDS: XARELTO PO SCH (17:13)
[2016-12-27] MEDS: LOPRESSOR PO SCH ×4 (02:24→19:30)
[2016-12-27] MEDS: DUONEB (A & A) INH SCH ×4 (03:58→19:07)
[2016-12-27] MEDS: PROTONIX IV SCH (06:05)
[2016-12-27] MEDS: SOLU-MEDROL IV SCH ×2 (06:06→17:09)
[2016-12-27] MEDS: SODIUM CHLORIDE 0.9% INJ SCH (06:06)
[2016-12-27] MEDS ORDERED: LASIX IV ONE (06:32)
--- NOTE | 2016-12-27 07:21 | PROGRESS NOTE ---
DATE: 12/27/2016 SUBJECTIVELY: Ms. Jacobs is doing better. She does get short of breath, still requiring higher concentration of oxygen. Her chest x-ray did reveal pulmonary edema. Heart rate is better. Oral intake is fair to poor. No typical chest pain. I started her on Solu-Medrol. The patient's breathing is some better. No nausea or vomiting. No diarrhea. OBJECTIVE: Vital signs: Reviewed. Neck: Supple. No JVD. Lungs: Bibasilar crepitations, occasional wheezing. Cardiovascular: S1 and S2 heard. Abdomen: Soft, globular. Bowel sounds present. CAFETERIA SUPERVISOR: Alert, awake, able to move all 4 limbs. ASSESSMENT/CONSIDERATION: Shortness of breath, multifactorial; pulmonary edema; chronic obstructive pulmonary disease exacerbation. Will treat her with antibiotics, steroid, pulmonary toilet, IV Lasix. I am going to repeat echocardiogram. Emergency Veterinarian following patient with us. Other problems includes: 1. Atrial fibrillation. 2. Bradyarrhythmia. 3. Osteoarthritis. 4. Situational depression. Labs and medication noted. We will continue current treatment and close observation. Overall plan discussed with patient and she is in agreement. I think patient will be benefited from short-term rehab and I am going to do social service consult for the same. cc: Neo Alfaro MD
[2016-12-27] MEDS: SYMBICORT 160/4.5 MICROGM INHALER INH SCH ×2 (09:35→19:07)
[2016-12-27] MEDS: ROCEPHIN 1 GM/NS 1 GM/50 ML IVPB IV SCH (10:06)
[2016-12-27] MEDS: NEURONTIN PO SCH ×3 (10:07→17:09)
[2016-12-27] MEDS: NORVASC PO SCH ×2 (10:07→21:29)
[2016-12-27] MEDS: LEXAPRO PO SCH (10:07)
[2016-12-27] MEDS: COZAAR PO SCH (10:07)
[2016-12-27] MEDS: CORDARONE PO SCH (10:08)
[2016-12-27] MEDS: NORCO-7.5 PO PRN (13:36)
--- NOTE | 2016-12-27 14:34 | ECHO REPORT ---
ORDER DATE: 12/27/2016 INDICATION: Acute on chronic kidney disease, atrial fib, hypertension, CHF. FINDINGS: 1. Right atrium is mildly enlarged at 4.3 cm. 2. There is moderate possibly severe tricuspid regurgitation with an RV systolic pressure of 52. 3. Right ventricle appears to be relatively normal in size. 4. Mild pulmonic insufficiency. 5. Severe left atrial enlargement with a dimension of 6 cm and a volume index of 88. 6. No mitral valve prolapse. There is at least moderate mitral regurgitation and possibly severe. This is a very eccentric jet. I would consider the possibility of transesophageal echo to further evaluate the degree of mitral regurgitation. 7. Normal LV size with an end-diastolic dimension of 4.1. Normal wall thicknesses with a posterior and interventricular wall thickness of 1.0 cm each. Normal LV systolic function with an estimated EF of 65% to 70% with normal wall motion. 8. Aortic valve opens well. It is trileaflet. No evidence of stenosis or insufficiency. 9. Aorta appears normal in visualized segments. 10. No pericardial effusion seen. cc: MD Neo Melara MD
[2016-12-27 15:50] LABS: HEMATOCRIT 28.7 % (37.0-47.0); HEMOGLOBIN 9.1 g/dL (12.0-16.0); IMM GRAN# 0.03 X1000 (0.0-0.04); IMM GRAN% 0.3 % (0.0-0.5); LYMPH# 1.09 X1000 (1.2-3.4); LYMPH% 9.8 % (20.5-51.1); MANUAL DIFF NEEDED? NO; MCH 26.2 PG (27-31); MCHC 31.7 g/dL (33-37); MCV 82.7 FL (81-99); MONO# 0.29 X1000 (0.11-0.59); MONO% 2.6 % (1.7-9.3); MPV 11.9 FL (7.4-10.4); NEUT% 87.3 % (42.2-75.2); PLT 292 X1000 (130-400); RBC 3.47 XMIL (4.2-5.4)
[2016-12-27 16:36] LABS: ALBUMIN 3.5 g/dL (3.5-5.0); CALCIUM 8.8 mg/dL (8.8-10.2); POTASSIUM 3.5 mmol/L (3.5-5.1); TOTAL BILIRUBIN 0.32 mg/dL (0.20-1.00); TOTAL PROTEIN 6.2 g/dL (6.3-8.3)
[2016-12-27] MEDS: XARELTO PO SCH (17:09)
[2016-12-28] MEDS: NORCO-7.5 PO PRN ×2 (00:08→21:44)
[2016-12-28] MEDS: LOPRESSOR PO SCH ×4 (02:42→20:28)
[2016-12-28] MEDS: DUONEB (A & A) INH SCH ×4 (03:19→20:00)
[2016-12-28] MEDS: SODIUM CHLORIDE 0.9% INJ SCH (05:46)
[2016-12-28] MEDS: SOLU-MEDROL IV SCH ×2 (05:46→17:11)
[2016-12-28] MEDS: ROCEPHIN 1 GM/NS 1 GM/50 ML IVPB IV SCH (05:47)
[2016-12-28] MEDS: PROTONIX IV SCH ×2 (05:47→06:11)
[2016-12-28] MEDS ORDERED: LASIX IV ONE (06:36)
--- NOTE | 2016-12-28 07:24 | Diag Imaging Result Doc PS360 ---
CHEST-PORTABLE - 12/28/2016 INDICATION: dyspnea TECHNIQUE: COMPARISON: 12/25/2016 FINDINGS: There is worsening infiltrate throughout the right upper lobe. Hazy opacities consistent with effusions have decreased or redistributed from the bases. Stable cardiomegaly and pulmonary vascular congestion. Stable significant retrocardiac infiltrate. IMPRESSION: 1. Worsening right upper lobe infiltrate, nonspecific. 2. Decrease or redistribution of the pleural effusions. Electronically signed by Venancio Emery 12/28/2016 7:22 AM
--- NOTE | 2016-12-28 07:54 | PROGRESS NOTE ---
DATE: 12/28/2016 SUBJECTIVE: Ms. Jacobs is doing fair. She still gets short of breath with exertion, still requiring higher concentration of oxygen, though she is getting some better. Mild cough. No expectoration. No typical chest pain or palpitations. Denied any nausea, vomiting. Oral intake is improving. The patient had an echocardiogram done yesterday which did reveal moderate-to- severe mitral regurgitation, tricuspid regurgitation. Her ejection fraction was good. Chest x-ray done today: Official result is pending though it does look better than when we did it a few days ago. I am going to give her a small dose of IV Lasix. 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 She does have atrial fibrillation. She is on anticoagulation. OBJECTIVE: Her vital signs reviewed. Neck supple. No JVD. Lungs: Bibasilar crepitation. Occasional wheezing. CVS: S1 and S2 heard. 2/6 systolic murmur at the apex. Abdomen soft, globular. Bowel sounds present. HOSPICE VOLUNTEER: Alert, awake, able to move all 4 limbs. CONSIDERATION: 1. Shortness of breath. It is a combination of pulmonary edema, chronic obstructive pulmonary disease exacerbation. The patient is on bronchodilator treatment, treatment for pulmonary edema. She does have atrial fibrillation. Slow ventricular response. Tank Insulator Rubber following patient with us. I did order a chest x-ray for today. Official result pending. Plan is to transfer patient to CIC bed. 2. Low back pain. 3. Anxiety. PLAN: Overall plan discussed with the patient. Plan is to send her to rehab for deconditioning, monitoring of her labile condition. Patient is in agreement. cc: Neo Alfaro MD
[2016-12-28] MEDS: NORVASC PO SCH ×2 (08:16→20:28)
[2016-12-28] MEDS: LEXAPRO PO SCH (08:16)
[2016-12-28] MEDS: COZAAR PO SCH (08:16)
[2016-12-28] MEDS: CORDARONE PO SCH (08:17)
[2016-12-28] MEDS: NEURONTIN PO SCH ×3 (08:20→17:10)
[2016-12-28] MEDS ORDERED: POTASSIUM CHLORIDE 20% LIQUID PO ONE (09:09)
--- NOTE | 2016-12-28 09:33 | PROGRESS NOTE ---
DATE: 12/28/2016 CHIEF COMPLAINT: Irregular heartbeat, bradycardia. SUBJECTIVE: Mrs. Jacobs is really feeling better. However, her chest x-ray is looking worse, suggesting that she probably has pneumonia that involves the right upper lobe. OBJECTIVE: Vital signs: Her blood pressure today is 155/85, temperature 98.2, pulse 62, respirations 13. General: She is elderly, awake, in no distress. HEENT: Unremarkable. Chest: Shows diffusely diminished breath sounds in both lungs. Cardiac: Heart sounds are regular, rhythmic. I do not hear any gallop or murmur. Abdomen: Nontender. Extremities: No edema. Neurological: Follows commands, moves four extremities. BLOOD WORK: Her white count is 11,130--it went up. Hemoglobin is 9.1, hematocrit is 28.7. Her sodium is 137, potassium 3.5, BUN 23, creatinine 1.3. Her AST is elevated at 56 , ALT 66, alkaline phosphatase 110. ProBNP is 6787. Albumin is 3.5. Her creatinine clearance was calculated at 37 mL/min. IMPRESSION: 1. Patient who presented to my attention with significant bradycardia. However , she was asymptomatic from it. She does have a history of paroxysmal atrial fibrillation.This has improved by adjusting her medications. 2. Chronic renal insufficiency stage 3-B. GFR calculated at 37 mL/min. 3. Suspect right upper lobe pneumonia. 4. History of hypertension. RECOMMENDATION: At this point in time, we will do a CT scan of the chest without contrast to better define the extent of the pneumonia. I agree with transfer to stepdown unit. The patient is not critically ill. We will give her some potassium supplement because her potassium is at the lower limits of normal, and she has had paroxysmal atrial fibrillation. She also got Lasix. Further advice will be forthcoming. Thank you for the opportunity to participate in her evaluation. cc: MD Neo Morin MD MTDD
[2016-12-28] MEDS: SYMBICORT 160/4.5 MICROGM INHALER INH SCH ×2 (10:08→21:13)
--- NOTE | 2016-12-28 10:44 | Diag Imaging Result Doc PS360 ---
EXAM: CT THORAX W/O CONTRAST INDICATION: pneumonia right lung TECHNIQUE: Dose reduction protocol was used. COMPARISON: 03/27/2016 FINDINGS: There is stable pulmonary emphysema. There is a right upper lobe airspace infiltrate consistent with pneumonia. There is much milder patchy focal infiltrate in the left upper lobe as well. There is a moderate-sized right pleural effusion and a small left effusion. There is bilateral basilar atelectasis. There are a couple calcified granulomata on the right. There is stable cardiomegaly. There are calcified mediastinal and right hilar lymph nodes indicating prior granulomatous disease. There are a few other somewhat prominent noncalcified mediastinal lymph nodes, probably reactive. There is aortic atherosclerotic calcification. IMPRESSION: 1.Pulmonary emphysema. 2.Right upper lobe and milder left upper lobe infiltrate consistent with pneumonia. 3.Bilateral pleural effusions and bibasilar atelectasis, worse on the right. 4.Other incidental/nonacute findings detailed above. Electronically signed by Saad Shankar 12/28/2016 10:41 AM
[2016-12-28] MEDS: XARELTO PO SCH (17:10)
[2016-12-28] MEDS: DOXYCYCLINE PO SCH (20:28)
[2016-12-29] MEDS: LOPRESSOR PO SCH ×3 (01:30→19:59)
[2016-12-29] MEDS: DUONEB (A & A) INH SCH ×4 (02:55→18:49)
[2016-12-29 05:29] LABS: MANUAL DIFF NEEDED? NO
[2016-12-29 05:32] LABS: BASO% 0.1 % (0.0-0.8); HEMATOCRIT 27.6 % (37.0-47.0); HEMOGLOBIN 8.9 g/dL (12.0-16.0); IMM GRAN# 0.07 X1000 (0.0-0.04); IMM GRAN% 0.6 % (0.0-0.5); LYMPH# 1.42 X1000 (1.2-3.4); LYMPH% 13.2 % (20.5-51.1); MCH 26.9 PG (27-31); MCHC 32.2 g/dL (33-37); MCV 83.4 FL (81-99); MONO# 0.45 X1000 (0.11-0.59); MONO% 4.2 % (1.7-9.3); NEUT% 81.9 % (42.2-75.2); PLT 308 X1000 (130-400); RBC 3.31 XMIL (4.2-5.4)
[2016-12-29] MEDS: SOLU-MEDROL IV SCH (05:53)
[2016-12-29] MEDS: PROTONIX PO SCH ×2 (05:54→06:38)
[2016-12-29] MEDS: ROCEPHIN 1 GM/NS 1 GM/50 ML IVPB IV SCH (05:54)
[2016-12-29 06:01] LABS: ALBUMIN 3.1 g/dL (3.5-5.0); CALCIUM 8.5 mg/dL (8.8-10.2); POTASSIUM 4.5 mmol/L (3.5-5.1); TOTAL BILIRUBIN 0.29 mg/dL (0.20-1.00); TOTAL PROTEIN 5.9 g/dL (6.3-8.3)
--- NOTE | 2016-12-29 07:27 | PROGRESS NOTE ---
DATE: 12/29/2016 SUBJECTIVE: The Arlene Gilmore is doing better. Her shortness of breath is improving. The patient does have mild cough. No high-grade fever or chills. No nausea or vomiting. No dysuria. The patient had a very complex hospital course. Admitted with nonspecific tremulousness. Patient was bradycardic. We held her beta chao, amiodarone and Cardizem initially. Cardiology consult obtained. Gradually, she was put back on beta chao. She was on Hyzaar but currently she is on Cozaar. The patient was started on Norvasc instead of Cardizem. The patient had increasing cough, congestion, hypoxemic respiratory failure requiring high dose of oxygen. I entertained possibility of COPD exacerbation. Started her on steroid, bronchodilator treatment, IV antibiotics. The patient is doing better. 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 Patient's CT did reveal COPD, pulmonary scarring and pneumonia. I added doxycycline for atypical coverage. The patient is on Rocephin, which will continue. Clinically, patient is doing fair. No typical chest pain. Plan is to discharge her to rehab either tomorrow or on Sunday for sure if clinical condition permits. Patient is in agreement. OBJECTIVE: Vital Signs: Her vital signs noted. She is bradycardic but tolerating it well. Afebrile. Neck: Supple. No JVD. Lungs: Bilateral good air entry present. Occasional wheezing. CVS: S1 and S2. Bradycardia, 2-3/6 systolic murmur at the apex. Abdomen: Soft, globular. Bowel sounds present. Extremities: No cyanosis, clubbing. No acute DVT. TOP CLOSER: Alert, awake. Able to move all 4 limbs. The patient is getting physical therapy for deconditioning. Her BUN this morning is 34 creatinine 1.4. Potassium was 4.5, magnesium 2.2. AST was 53, ALT was 98. CBC hemoglobin 8.9, hematocrit 27.6. The patient does have significantly compromised cardiopulmonary status. I think she will be benefited from 1 unit of packed RBC. I am going to change her steroid to p.o. prednisone. Continue antibiotics. Close observation. CONSIDERATION: Her problem includes 1. Atrial fibrillation with slow ventricular response. 2. Significant valvular heart disease with pulmonary hypertension in the form of tricuspid and mitral regurgitation. 3. Chronic obstructive pulmonary disease. 4. Right upper lobe pneumonia. 5. Anemia most likely of chronic disease. 6. Chronic kidney disease. 7. Osteoarthritis. 8. Situational depression and anxiety. PLAN: Plan is to discharge patient to rehab either tomorrow or on Sunday. The patient is in agreement. Dr. Hagen will see the patient in my absence. cc: Neo Alfaro MD
[2016-12-29] MEDS: NORVASC PO SCH ×2 (09:00→19:59)
[2016-12-29] MEDS: COZAAR PO SCH (09:00)
[2016-12-29] MEDS: DOXYCYCLINE PO SCH ×2 (09:00→19:59)
[2016-12-29] MEDS: CORDARONE PO SCH (09:00)
[2016-12-29] MEDS: NEURONTIN PO SCH ×3 (09:01→17:09)
[2016-12-29] MEDS: LEXAPRO PO SCH (09:01)
[2016-12-29] MEDS: LASIX PO SCH (09:19)
[2016-12-29] MEDS: PREDNISONE PO SCH (09:19)
[2016-12-29] MEDS: SYMBICORT 160/4.5 MICROGM INHALER INH SCH ×2 (10:11→18:49)
--- NOTE | 2016-12-29 11:37 | PROGRESS NOTE ---
DATE: 12/29/2016 SUBJECTIVE: Ms. Jacobs is doing well. She is receiving a blood transfusion today. Her hematocrit was 27.6 this morning. OBJECTIVE: Vital Signs: On physical examination she is afebrile. Her heart rates have been in the 50s and 60s during this hospitalization. Blood pressure 132/58. General: No acute distress. Cardiovascular: She is in a regular rate and rhythm. No murmurs. No S3. Telemetry currently shows sinus bradycardia. Chest: Exam is relatively clear. Poor inspiratory effort. No increased work of breathing. Abdomen: Soft, nontender. PERTINENT DATA: White count 10.7, hematocrit 27.6, platelet count is 308. Sodium 140, potassium 4.5, BUN 34, creatinine 1.4. ASSESSMENT: 1. Relative bradycardia. 2. Chronic renal insufficiency. 3. Right upper lobe pneumonia. PLAN: I will continue on the beta blockers and amiodarone as currently dosed. Her telemetry seems to be showing just sinus bradycardia. I have no further recommendations at this point. cc: MD Neo Melara MD
[2016-12-29] MEDS: XARELTO PO SCH (17:09)
[2016-12-29] MEDS: NORCO-7.5 PO PRN (19:59)
--- NOTE | 2016-12-29 21:15 | DISCHARGE SUMMARY ---
ADMISSION DATE: 12/22/2016 DISCHARGE DATE: 12/29/2016 DISCHARGE DIAGNOSES: 1. Right upper lobe pneumonia. 2. Pulmonary edema. 3. Atrial fibrillation with slow ventricular response. 4. Osteoarthritis. 5. Situational depression and anxiety. 6. Chronic kidney disease. 7. Anemia of chronic disease. 8. Gastritis and reflux disease. 9. Nonspecific tremors. HOSPITAL COURSE: Ms. Jacobs is a 71-year-old, white female patient. Her initial presentation was very nonspecific in the form of tremor, shakiness, unsteady gait. The patient had a workup done in the emergency room in the form of a CT scan of the head and an MRI which revealed some age- related changes, chronic microvascular white matter disease and an old lacunar infarction. The patient was admitted for further care. The patient developed significant bradyarrhythmia. Her heart rate was in the 30s. At that time patient was on Cardizem, beta-chao, amiodarone. Her beta-chao and Cardizem were held. Patient was symptomatic. She was transferred to ICU and given some IV fluids. Cardiology consultation obtained. The patient also had chest congestion, cough, and wheezing. I started treating her as a COPD exacerbation. Her clinical condition stabilized and improved. [place] [facility] Lab Technician gradually put her back on her beta-chao and amiodarone instead of Cardizem. We started her back on Norvasc. I already started her on antibiotic, bronchodilator treatment and steroid. The patient is doing better on December 29. Her hemoglobin was 8.9. Patient had a significantly compromised cardiopulmonary status. I thought she would benefit from a blood transfusion and we gave her 1 unit of packed RBCs. The patient did receive some IV iron infusion prior to that. The patient had CT scan of the chest done which did reveal COPD and pneumonia. Overall patient is doing better. She denied any typical chest pain or palpitations. Her strength and shortness of breath was improving. Her heart rate is stable. I did discuss this with Dr. Thompson covering for Dr. Fishman who is also in agreement for possible discharge tomorrow if clinical condition permits. We will decrease her beta-chao to 25 mg twice a day, continue pulmonary toilet, taper dose of steroids, and continue antibiotics. LABORATORY DATA: BUN 34, creatinine 1.4, potassium was 4.5. Hemoglobin today 8.9, hematocrit 27.6, platelet count 308,000. WBC count 10.77. Chest CT scan results did reveal pulmonary COPD, right upper lobe and milder left upper lobe infiltrate consistent with pneumonia, bilateral pleural effusion, bibasilar atelectasis. Her echocardiogram did reveal significant valvular abnormality, normal LV systolic function, moderate mitral regurgitation possibly severe, also tricuspid regurgitation. Overall patient received maximum benefit of hospitalization. Her LFTs is minimally abnormal. The patient is already on anticoagulation. If she continues to do well, we are planning to discharge her to rehabilitation tomorrow. PLAN: I discussed with the patient and she is in agreement. cc: Neo Alfaro MD
[2016-12-30] MEDS: DUONEB (A & A) INH SCH ×3 (03:27→09:09)
[2016-12-30 05:28] LABS: MANUAL DIFF NEEDED? NO
[2016-12-30 05:36] LABS: BASO% 0.1 % (0.0-0.8); EOS# 0.01 X1000 (0.0-0.7); EOS% 0.1 % (0.0-10.0); HEMATOCRIT 33.6 % (37.0-47.0); HEMOGLOBIN 11.1 g/dL (12.0-16.0); IMM GRAN# 0.13 X1000 (0.0-0.04); LYMPH% 18.7 % (20.5-51.1); MCH 27.3 PG (27-31); MCV 82.6 FL (81-99); MONO# 0.67 X1000 (0.11-0.59); MONO% 5.2 % (1.7-9.3); MPV 11.5 FL (7.4-10.4); NEUT% 74.9 % (42.2-75.2); PLT 321 X1000 (130-400); RBC 4.07 XMIL (4.2-5.4)
[2016-12-30] MEDS: ROCEPHIN 1 GM/NS 1 GM/50 ML IVPB IV SCH (06:04)
[2016-12-30] MEDS: PROTONIX PO SCH (06:04)
[2016-12-30 06:34] LABS: ALBUMIN 3.4 g/dL (3.5-5.0); CALCIUM 8.5 mg/dL (8.8-10.2); POTASSIUM 3.8 mmol/L (3.5-5.1); TOTAL BILIRUBIN 0.34 mg/dL (0.20-1.00); TOTAL PROTEIN 6.2 g/dL (6.3-8.3)
[2016-12-30] MEDS: DOXYCYCLINE PO SCH (08:54)
[2016-12-30] MEDS: LASIX PO SCH (08:54)
[2016-12-30] MEDS: PREDNISONE PO SCH (08:54)
[2016-12-30] MEDS: LEXAPRO PO SCH (08:54)
[2016-12-30] MEDS: CORDARONE PO SCH (08:54)
[2016-12-30] MEDS: NEURONTIN PO SCH ×2 (08:55→12:33)
[2016-12-30] MEDS: COZAAR PO SCH (08:55)
[2016-12-30] MEDS: LOPRESSOR PO SCH (08:55)
[2016-12-30] MEDS: NORVASC PO SCH (08:55)
[2016-12-30] MEDS: SYMBICORT 160/4.5 MICROGM INHALER INH SCH (09:09)
[2016-12-30 11:39] VITALS: BP 135/63
== END 2016-12-30 13:40 ==
LOC: ED 03:45 → 3N 08:45 → ICU 12-24 20:05 → 3S 12-28 11:15
PROVIDERS: ADMIT Internal Medicine; ATTEND Internal Medicine

== ENCOUNTER 2017-02-12 09:56 | Inpatient (IN) ==
[2017-02-12] MEDS ORDERED: ASPIRIN PO STA (11:47)
[2017-02-12] MEDS ORDERED: DUONEB (A & A) INH ONE (11:50)
[2017-02-12 12:07] LABS: MANUAL DIFF NEEDED? NO
[2017-02-12 12:09] LABS: BASO% 0.5 % (0.0-0.8); EOS# 0.23 X1000 (0.0-0.7); EOS% 2.4 % (0.0-10.0); HEMATOCRIT 34.8 % (37.0-47.0); HEMOGLOBIN 11.3 g/dL (12.0-16.0); IMM GRAN# 0.02 X1000 (0.0-0.04); IMM GRAN% 0.2 % (0.0-0.5); LYMPH# 1.35 X1000 (1.2-3.4); LYMPH% 13.9 % (20.5-51.1); MCHC 32.5 g/dL (33-37); MCV 86.1 FL (81-99); MONO% 9.2 % (1.7-9.3); MPV 11.7 FL (7.4-10.4); NEUT% 73.8 % (42.2-75.2); PLT 248 X1000 (130-400); RBC 4.04 XMIL (4.2-5.4)
[2017-02-12 12:20] LABS: INR 1.56; PROTIME 16.9 Seconds (9.2-11.7)
--- NOTE | 2017-02-12 12:24 | Diag Imaging Result Doc PS360 ---
CHEST-PORTABLE - 02/12/2017 INDICATION: sob TECHNIQUE: COMPARISON: 12/28/2016 FINDINGS: There is stable significant cardiomegaly and pulmonary vascular congestion. Stable bulky calcified granulomas at the right tracheobronchial angle. There is mild diffuse pulmonary edema. The extent is somewhat less than on 12/28/2016. No pneumothorax or large effusion. IMPRESSION: Cardiomegaly and pulmonary edema. Electronically signed by Venancio Emery 02/12/2017 12:22 PM
[2017-02-12 12:35] LABS: ALBUMIN 4.2 g/dL (3.5-5.0); CALCIUM 8.6 mg/dL (8.8-10.2); MAGNESIUM 1.9 mg/dL (1.5-2.7); POTASSIUM 3.3 mmol/L (3.5-5.1); TOTAL BILIRUBIN 0.87 mg/dL (0.20-1.00); TOTAL PROTEIN 6.7 g/dL (6.3-8.3)
[2017-02-12 12:37] LABS: PTT 46.4 Seconds (22.0-36.0)
[2017-02-12] MEDS ORDERED: LASIX IV ONE (13:00)
--- NOTE | 2017-02-12 13:14 | PROVIDER DOCUMENTATION ---
This chart was entered by Jarrett Perry Scribe, acting as scribe for Anthony Sheth MD. HPI-Respiratory General - General Chief Complaint: Shortness of Breath Stated Complaint: headache,coughing,vomiting Time Seen by Provider: 02/12/17 10:37 Source: patient Allergies/Adverse Reactions: Patient Allergies Allergy/AdvReac Type Severity Reaction Status Date / Time Iodinated Contrast- Oral and AdvReac Severe NAUSEA/VOMI Verified 02/12/17 10:34 IV Dye TING Home Medications: Home Medication List Medication Instructions Recorded Confirmed Last Taken Type Albuterol Sulfate Inhaler 2 puff INH 4XDAY PRN PRN #1 inhaler 05/20/14 02/12/17 02/12/17 Rx [Ventolin Hfa] Rivaroxaban [Xarelto] 20 mg PO WSUPPER #30 tablet 05/20/14 02/12/17 02/11/17 22: 00 Rx Escitalopram [Lexapro] 10 mg PO DAILY #0 tablet 03/12/15 02/12/17 02/12/17 08: 00 Rx Gabapentin [Neurontin] 300 mg PO TID #0 capsule 03/12/15 02/12/17 02/12/17 08: 00 Rx Hydrocodone/Acetaminophen [[place] 1 each PO Q8H PRN PRN #0 10/19/15 02/12/17 22:00 Rx 7.5-325 Tablet] Alprazolam [Xanax] 0.5 mg PO BID PRN PRN #0 tablet 12/29/16 02/12/17 02/11/17 Rx Amiodarone [Cordarone] 200 mg PO DAILY tablet 12/29/16 02/12/17 02/12/17 08:00 Rx Amlodipine [Norvasc] 5 mg PO BID tablet 12/29/16 02/12/17 02/12/17 08:00 Rx Budesonide/Formoterol Inhaler 2 puff INH RTBID inhaler 12/29/16 02/12/17 08:00 Rx [Symbicort 160/4.5 Microgm Inhaler] Furosemide [Lasix] 40 mg PO DAILY tablet 12/29/16 02/12/17 02/12/17 08:00 Rx Losartan [Cozaar] 50 mg PO DAILY tablet 12/29/16 02/12/17 02/12/17 08:00 Rx Pantoprazole [Protonix] 40 mg PO DAILY@0700 tablet 12/29/16 02/12/17 02/12/17 08:00 Rx Prednisone 10 mg PO DAILY tablet 12/29/16 02/12/17 02/12/17 08:00 Rx Metoprolol Tartrate 25 mg PO BID 02/12/17 02/12/17 02/12/17 08:00 History - History of Present Illness-Resp Nature of Presenting Problem: Patient is a 71 y/o F that presents with 2 days of shortness of breath, cough( productive yellow sputum). patient denies fever, chest pain, or n/v. patient reports just getting out of hospital x 3 weeks for pneumonia. At triage her o2 saturation was 87% on RA Quality of Pain: reports: tightness Severity in ED: reports: moderate Onset/Duration: reports: gradual, 2 days ago Timing: reports: still present, constant Context: reports: recent URI Cough Quality/Degree: reports: moderate, productive cough, sputum (yellow) Current Respiratory Medication Therapy: Initiated see nurses note Modifying Factors: worse with: exertion, coughing Associated Symptoms: reports: chest pain/soreness, cough, shortness of breath, short of breath, wheezing. denies: fever/chills, nasal congestion, nasal drainage Similar Symptoms Previously?: Yes Recently seen or treated by another doctor?: Yes Review of Systems - Adult - REVIEW OF SYSTEMS - ADULT Constitutional: denies: chills, fever Eyes: reports: no symptoms reported Ears, Nose, Mouth & Throat: reports: no symptoms reported Cardiovascular: denies: chest pain, orthopnea, palpitations, syncope Respiratory: reports: cough, dyspnea on exertion, shortness of breath, wheezing Gastrointestinal: denies: abdominal pain, diarrhea, nausea, vomiting Genitourinary: reports: no symptoms reported Musculoskeletal: reports: no symptoms reported Integumentary: reports: no symptoms reported Neurological: reports: no symptoms reported Psychiatric: reports: no symptoms reported Endocrine: reports: no symptoms reported Hematologic/Lymphatic: reports: no symptoms reported Allergic/Immunologic: reports: no symptoms reported All Other Systems: Reviewed and Negative Past History - Adult - PAST MEDICAL HISTORY-ADULT Review of Records: reports: Old Records Reviewed, Nursing Assessment Review, Medications Reviewed Cardiovascular: reports: A-Fib, HTN, PA (x2) Respiratory: reports: COPD (o2 at night 4lpm via NC) Gastrointestinal: reports: GERD - PRIOR SURGERIES/PROCEDURES Surgical/Procedure History: reports: hysterectomy, orthopedic (extremity) (left arm Sx), other (heart cath) - IMMUNIZATION STATUS Childhood Immunizations: See Nurse Assessment Flu Vaccine: See Nurse Assessment - SOCIAL HISTORY Smoking: quit greater than 1 year, cigarettes Living Situation: family Physical Exam-General - PHYSICAL EXAM-ADULT Initial Vital Signs Reviewed: Yes - CONSTITUTIONAL General Appearance: alert, mild distress (ill appearing), moderate distress - EYES Eyes: PERRL/EOMI, pink conjunctivae - HEAD, EARS, NOSE, MOUTH & THROAT HENMT: normocephalic/atraumatic, moist mucous membranes, normal ENT inspection - NECK Neck: full range of motion, normal inspection - RESPIRATORY Respiratory: no respiratory distress, no accessory muscle use, rales (bilateral bases worse on left), rhonchi - CARDIOVASCULAR Cardiovascular: no gallop, no murmur, bradycardia - GASTROINTESTINAL (ABDOMEN) Abdominal Exam: normal bowel sounds, non tender, soft, no organomegaly, no pulsatile mass - MUSCULOSKELETAL Extremity: normal range of motion, normal inspection, no pedal edema - SKIN Integumentary: normal color, warm/dry - NEUROLOGIC 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, no motor/sensory deficits - PSYCHIATRIC Psych/Mental Status: normal mood/affect, normal thought content, normal thought process, oriented x 3 Progress - PLAN OF CARE/RESULTS Progress/Plan/Lab Results: Vital Signs - 8 hr 02/12/17 10:40 02/12/17 11:16 02/12/17 11:58 Pulse Rate 81 46 L 46 L Respiratory Rate 22 24 16 Blood Pressure 109/42 125/57 O2 Sat by Pulse Oximetry 87 L 98 98 02/12/17 12:13 Pulse Rate 46 L Respiratory Rate 21 Blood Pressure 125/57 O2 Sat by Pulse Oximetry 95 Laboratory Results - last 24 hr 02/12/17 02/12/17 02/12/17 10:51 10:51 10:51 WBC 9.74 RBC 4.04 L Hgb 11.3 L Hct 34.8 L MCV 86.1 MCH 28.0 MCHC 32.5 L RDW Std Deviation 19.6 H Plt Count 248 MPV 11.7 H Immature Gran % (Auto) 0.2 Neut % (Auto) 73.8 Lymph % (Auto) 13.9 L [place] % (Auto) 9.2 Eos % (Auto) 2.4 Baso % (Auto) 0.5 Immature Gran # (Auto) 0.02 Neut # (Auto) 7.19 H Lymph # (Auto) 1.35 [place] # (Auto) 0.90 H Eos # (Auto) 0.23 Baso # (Auto) 0.05 PT INR PTT (Actin FS) Sodium 139 Potassium 3.3 L Chloride 98 Carbon Dioxide 29 Anion Gap 12 BUN 17 Creatinine 1.3 H Estimated GFR/1.73 m2 40 BUN/Creatinine Ratio 13 Glucose 84 Calculated Osmolality 278 Calcium 8.6 L Magnesium 1.9 Total Bilirubin 0.87 AST 33 H ALT 42 H Alkaline Phosphatase 83 Creatine Kinase 126 Troponin T [id number] Pept 7026 H Total Protein 6.7 Albumin 4.2 Globulin 2.5 Albumin/Globulin Ratio 1.7 02/12/17 02/12/17 10:51 10:51 WBC RBC Hgb Hct MCV MCH MCHC RDW Std Deviation Plt Count MPV Immature Gran % (Auto) Neut % (Auto) Lymph % (Auto) [place] % (Auto) Eos % (Auto) Baso % (Auto) Immature Gran # (Auto) Neut # (Auto) Lymph # (Auto) [place] # (Auto) Eos # (Auto) Baso # (Auto) PT 16.9 H INR 1.56 PTT (Actin FS) 46.4 H Sodium Potassium Chloride Carbon Dioxide Anion Gap BUN Creatinine Estimated GFR/1.73 m2 BUN/Creatinine Ratio Glucose Calculated Osmolality Calcium Magnesium Total Bilirubin AST ALT Alkaline Phosphatase Creatine Kinase Troponin T < 0.010 Zcz-G-Hggknbqvisw Pept Total Protein Albumin Globulin Albumin/Globulin Ratio Orders Category Date Time Status Activity - Bed Rest with BRP ORDERED Care 02/12/17 13:07 Active Activity - Up Ad Gale ORDERED Care 02/12/17 13:07 Active Call Admitting on Arrival AT ADMISSION Care 02/12/17 13:09 Active Cardiac Monitoring DIRECTED Care 02/12/17 11:47 Active Neurological Check PRN Care 02/12/17 13:07 Active Oxygen Therapy- ED Nursing DIRECTED Care 02/12/17 11:47 Active Resuscitation Status Routine Care 02/12/17 13:07 Ordered Saline Loc DIRECTED Care 02/12/17 13:07 Active Saline Loc NOW Care 02/12/17 11:47 Active Vital Signs Order ROUTINE Care 02/12/17 13:07 Active Heart Healthy Diet Diet 02/12/17 13:09 Active CHEST-PORTABLE [RAD] Stat Exams 02/12/17 11:48 Completed CBC WITH ELECTRONIC DIFF [HEME] Stat Lab 02/12/17 10:51 Completed CK PROFILE [SP CHEM] Stat Lab 02/12/17 10:51 Completed COMPREHENSIVE METABOLIC PANEL [CHEM] Stat Lab 02/12/17 10:51 Completed MAGNESIUM [CHEM] Stat Lab 02/12/17 10:51 Completed PRO B-NATRIURETIC PEPTIDE Stat Lab 02/12/17 10:51 Completed PROTIME WITH INR [COAG] Stat Lab 02/12/17 10:51 Completed PTT [COAG] Stat Lab 02/12/17 10:51 Completed TROPONIN T Stat Lab 02/12/17 10:51 Completed Albuterol 2.5MG/Ipratrop 0.5MG [Duoneb (A & A)] Med 02/12/17 11:50 Discontinued 3 ml INH NOW ONE Aspirin Med 02/12/17 11:47 Discontinued 325 mg PO STAT STA Furosemide [Lasix] Med 02/12/17 13:00 Discontinued 60 mg IV NOW ONE Aerosol Treatments Routine Oth 02/12/17 11:50 Completed Aerosol Treatments Stat Oth 02/12/17 11:50 Completed EKG [EKG] Stat Ther 02/12/17 10:15 Ordered EKG [EKG] Stat Ther 02/12/17 11:47 Ordered Transfer/Admit Order [TRANSFER] Routine Transfer 02/12/17 13:11 Ordered Vital Signs Pulse Resp BP Pulse Ox 02/12/17 12:13 46 L 21 125/57 95 02/12/17 11:58 46 L 16 98 02/12/17 11:16 46 L 24 125/57 98 02/12/17 10:40 81 22 109/42 87 L Iodinated Contrast- Oral and IV Dye Adverse Reaction (Severe, Verified 02/12/17 10:34) NAUSEA/VOMITING Albuterol Sulfate Inhaler [Ventolin Hfa] 2 puff INH 4XDAY PRN PRN #1 inhaler Rivaroxaban [Xarelto] 20 mg PO WSUPPER #30 tablet 11/19/14 Escitalopram [Lexapro] 10 mg PO DAILY #0 tablet 03/12/15 Gabapentin [Neurontin] 300 mg PO TID #0 capsule 03/12/15 Hydrocodone/Acetaminophen [[place] 7.5-325 Tablet] 1 each PO Q8H PRN PRN #0 10/18 Alprazolam [Xanax] 0.5 mg PO BID PRN PRN #0 tablet 12/29/16 Amiodarone [Cordarone] 200 mg PO DAILY tablet 12/29/16 Amlodipine [Norvasc] 5 mg PO BID tablet 12/29/16 Budesonide/Formoterol Inhaler [Symbicort 160/4.5 Microgm Inhaler] 2 puff INH RTBID inhaler 12/29/16 Furosemide [Lasix] 40 mg PO DAILY tablet 12/29/16 Losartan [Cozaar] 50 mg PO DAILY tablet 12/29/16 Pantoprazole [Protonix] 40 mg PO DAILY@0700 tablet 12/29/16 Prednisone 10 mg PO DAILY tablet 12/29/16 Metoprolol Tartrate 25 mg PO BID 02/12/17 Laboratory 02/12/17 02/12/17 02/12/17 10:51 10:51 10:51 WBC RBC Hgb Hct MCV MCH MCHC RDW Std Deviation Plt Count MPV Immature Gran % (Auto) Neut % (Auto) Lymph % (Auto) [place] % (Auto) Eos % (Auto) Baso % (Auto) Immature Gran # (Auto) Neut # (Auto) Lymph # (Auto) [place] # (Auto) Eos # (Auto) Baso # (Auto) PT 16.9 H INR 1.56 PTT (Actin FS) 46.4 H Sodium Potassium Chloride Carbon Dioxide Anion Gap BUN Creatinine Estimated GFR/1.73 m2 BUN/Creatinine Ratio Glucose Calculated Osmolality Calcium Magnesium Total Bilirubin AST ALT Alkaline Phosphatase Creatine Kinase Troponin T < 0.010 Zvi-I-Qpjtnksxyit Pept 7026 H Total Protein Albumin Globulin Albumin/Globulin Ratio 02/12/17 02/12/17 10:51 10:51 WBC 9.74 RBC 4.04 L Hgb 11.3 L Hct 34.8 L MCV 86.1 MCH 28.0 MCHC 32.5 L RDW Std Deviation 19.6 H Plt Count 248 MPV 11.7 H Immature Gran % (Auto) 0.2 Neut % (Auto) 73.8 Lymph % (Auto) 13.9 L [place] % (Auto) 9.2 Eos % (Auto) 2.4 Baso % (Auto) 0.5 Immature Gran # (Auto) 0.02 Neut # (Auto) 7.19 H Lymph # (Auto) 1.35 [place] # (Auto) 0.90 H Eos # (Auto) 0.23 Baso # (Auto) 0.05 PT INR PTT (Actin FS) Sodium 139 Potassium 3.3 L Chloride 98 Carbon Dioxide 29 Anion Gap 12 BUN 17 Creatinine 1.3 H Estimated GFR/1.73 m2 40 BUN/Creatinine Ratio 13 Glucose 84 Calculated Osmolality 278 Calcium 8.6 L Magnesium 1.9 Total Bilirubin 0.87 AST 33 H ALT 42 H Alkaline Phosphatase 83 Creatine Kinase 126 Troponin T Tst-Z-Ypkeopcabus Pept Total Protein 6.7 Albumin 4.2 Globulin 2.5 Albumin/Globulin Ratio 1.7 Result Diagrams: 02/12/17 10:51 02/12/17 10:51 - EKG 1 Time of EKG reading by physician:: 10:13 EKG Read and Signed by:: Anthony Sheth EKG Interpretation (*Must complete 3 of following elements*): Abnormal Rate: 51 Rhythm: Sinus Bradycardia [place]: normal QRS: LVH ST Wave: normal - XRAY 1 XRAY Study: Chest Impression: Abnormal XRAY Interpretation: CMG and pulmonary edema - CONSULTS/PCP/HOSPITALIST Notification #1 *Consult/PCP/Hospitalist*: Time Discussed: 13:06 Reason/Comments: copd exacerbation,chf Consult Disposition: Admit Departure - Departure Date of Disposition Decision: 02/12/17 Time of Disposition Decision: 13:06 DIAGNOSIS: COPD with acute exacerbation, CHF (congestive heart failure) Disposition: ADMITTED INPATIENT 09 Certified Medical Emergency: Emergent Condition: Stable Referrals and Follow-Ups: Neo Alfaro MD [Primary Care Provider] - - Critical Care Note This patient required my direct & personal management of CC.: No Attestation - Physician/ CAYDEN Attestation The physician spent face to face time with patient:: Yes Advanced Practice Provider documentation review:: Supervising physician onsite and consulted in the evaluation and care of this patient. The physician did have a face to face encounter with the patient. This chart was documented by the indicated scribe, (Jarrett Perry, Scribe) and accurately reflects the services I performed and decisions made by me, Anthony Sheth MD, as attested by the provider's signature.
--- NOTE | 2017-02-12 13:26 | EKG Report ---
Test Performed on : 02/12/2017 10:13:44 AM Test Reason : Chest Pain Blood Pressure : / mmHG Vent. Rate : 051 BPM Atrial Rate : 051 BPM P-R Int : 162 ms QRS Dur : 082 ms QT Int : 488 ms P-R-T Axes : 069 009 049 degrees QTc Int : 449 ms Sinus bradycardia. Left ventricular hypertrophy with repolarization abnormality Inferior infarct (cited on or before 24-DEC-2016) Abnormal ECG When compared with ECG of 26-DEC-2016 05:09, Questionable change in initial forces of Inferior leads T wave inversion no longer evident in Anterior leads QT has shortened Unconfirmed Result
[2017-02-12] MEDS ORDERED: LINZESS PO ONE (17:06)
[2017-02-12 18:02] LABS: URINE MICRO REVIEW NEEDED? NO; URINE SOURCE CLEAN CATCH
--- NOTE | 2017-02-12 18:02 | HISTORY AND PHYSICAL ---
HISTORY OF PRESENT ILLNESS: A 71-year-old white female patient complaining of chest congestion, cough with yellowish sputum production going on for 2 days. Also complaining of some nausea. The patient vomited once last night. She had subjective fever, increasing shortness of breath, and decreased exercise tolerance. The patient was brought to the emergency room and evaluated by ER physician. Patient found to have COPD exacerbation and pulmonary edema. The patient was given Lasix. The patient was feeling some better. Admitted for further care. The patient was complaining of vague chest pain. At times she was describing as pressure on the chest and heaviness. I did EKG which did reveal sinus bradycardia. Her cardiac isoenzymes were negative. The patient is very vague and poor historian. The patient did have chest soreness when she coughed. She denied any hemoptysis. The patient does have history of COPD. The patient is on home oxygen and nebulizer treatment. She denied any high-grade fever. The patient did have chills. She does feel fatigued, tired and no energy. No orthopnea or PND. Complaining of feeling nauseous. No leg swelling. No heat or cold intolerance. The patient claims compliance to medication. No unusual bleeding. Dull headache. The patient did have runny nose, stuffy nose. The patient does feel stressed, at times depressed. ALLERGIES: Iodinated contrast, both oral and IV dye. PAST MEDICAL HISTORY: Significant for COPD, pulmonary fibrosis, atrial fibrillation, osteoarthritis, situational depression, hyperlipidemia, gastritis, coronary artery disease. MEDICATION: Includes albuterol, Lasix, prednisone, amiodarone, Norvasc, Symbicort, Celexa, Neurontin, [place], losartan, metoprolol, Protonix and Xarelto. PERSONAL HISTORY: Single. Ex-smoker, quit many years ago. Denied alcohol or substance abuse. Needs minimal assistance in activities of daily living. REVIEW OF SYSTEMS: As per HPI. FAMILY HISTORY: Noncontributory. PHYSICAL EXAMINATION: GENERAL: Elderly white female patient, in mild distress. VITAL SIGNS: In the emergency room blood pressure 109/42, pulse 81, respiration 22, temperature is 98.5 degrees, O2 saturation was low on room air, it was 87%. SKIN: Senile turgor. No rash or petechiae. HEAD: Atraumatic, normocephalic. [place] conjunctivae. Anicteric sclerae. Extraocular muscle movement normal. Fundus cannot be penetrated. Good oral hygiene. No tonsillopharyngeal congestion or exudate. Ears and nose benign. NECK: Supple. No JVD, thyromegaly or lymphadenopathy. CHEST: Bilateral good air entry present. Bibasilar crepitation. Bilateral occasional wheezing. CARDIOVASCULAR: S1 and S2 heard. A 2-3/6 systolic murmur at the apex. ABDOMEN: Soft. No distention. Bowel sounds present. No organomegaly or mass. EXTREMITIES: No cyanosis, clubbing. No acute DVT. 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 Crepitation both knee joints. Vague tenderness lumbosacral spine. LABORATORY DATA: WBC count 9.74, hemoglobin 11.3, hematocrit 34.8, platelet count 248,000. PT/INR 1.56, PTT was 46.4. Potassium was 3.3, BUN 17, creatinine 1.3, proBNP was 7026. The rest of the lab noted. Chest x-ray did reveal pulmonary edema. CONSIDERATION: Patient presented with shortness of breath. I think it is multifactorial chronic obstruction pulmonary disease exacerbation, uncompensated congestive heart failure. Her EKG reveals significant sinus bradycardia. Cardiac isoenzymes negative for acute myocardial infarction. Her other problems include paroxysmal atrial fibrillation, chronic low back pain. She does have history of chronic obstructive pulmonary disease, pulmonary fibrosis, hyperlipidemia, anemia. The patient does have hypokalemia. I am going to supplement potassium. Admit her to telemetry. Oxygen. Continue home medicine. Close observation. Start her on IV antibiotics. Bronchodilator treatment. IV Lasix. Monitor her on telemetry. Overall plan discussed with the patient. I am going to get a urine drug screen. cc: Neo Alfaro MD
[2017-02-12 18:15] LABS: BILIRUBIN URINE NEGATIVE (NEGATIVE); BLOOD URINE NEGATIVE (NEGATIVE); COLOR YELLOW; GLUCOSE URINE NEGATIVE (NEGATIVE); LEUKOCYTES URINE SMALL (NEGATIVE); NITRITE URINE NEGATIVE (NEGATIVE); PROTEIN URINE NEGATIVE (NEGATIVE); SP GRAVITY URINE 1.002; TURBIDITY URINE CLEAR (CLEAR); UROBILINOGEN URINE NORMAL (NORMAL)
[2017-02-12 18:17] LABS: UR EPITHELIAL CELLS <10 /HPF (<10); URINE BACTERIA NEGATIVE /HPF; URINE CULTURE NEEDED? YES; URINE RBC <10 /HPF (<10)
[2017-02-12 19:34] LABS: UR AMPHETAMINES QUAL NONE DETECTED (NONE DETECT); UR BARBITUATES QUAL NONE DETECTED (NONE DETECT); UR BENZODIAZEPIN QUAL NONE DETECTED (NONE DETECT); UR CANNABINOIDS QUAL NONE DETECTED (NONE DETECT); UR COCAINE QUAL NONE DETECTED (NONE DETECT); UR METHADONE QUAL NONE DETECTED (NONE DETECT); UR OPIATES QUAL NONE DETECTED (NONE DETECT); UR OXYCODONE QUAL NONE DETECTED (NONE DETECT); UR PCP QUAL NONE DETECTED (NONE DETECT)
[2017-02-12] MEDS: SOLU-MEDROL IV SCH (19:59)
[2017-02-12] MEDS: XARELTO PO SCH (19:59)
[2017-02-12] MEDS: ROCEPHIN 1 GM/NS 1 GM/50 ML IVPB IV SCH (19:59)
[2017-02-12] MEDS: DUONEB (A & A) INH SCH (21:00)
[2017-02-12] MEDS ORDERED: LOPRESSOR PO SCH (21:00)
[2017-02-12] MEDS: SYMBICORT 160/4.5 MICROGM INHALER INH SCH (21:00)
[2017-02-12] MEDS: NEURONTIN PO SCH (21:56)
[2017-02-12] MEDS: NORVASC PO SCH (21:56)
[2017-02-13] MEDS: DUONEB (A & A) INH SCH ×4 (03:00→21:05)
--- NOTE | 2017-02-13 05:24 | EKG Report ---
Test Performed on : 02/12/2017 4:44:46 PM Test Reason : chest pain Blood Pressure : / mmHG Vent. Rate : 044 BPM Atrial Rate : 044 BPM P-R Int : 164 ms QRS Dur : 088 ms QT Int : 548 ms P-R-T Axes : 072 027 035 degrees QTc Int : 468 ms Marked sinus bradycardia. Cannot rule out Inferior infarct (cited on or before 24-DEC-2016) Abnormal ECG When compared with ECG of 12-FEB-2017 10:13, (Unconfirmed) Questionable change in initial forces of Inferior leads ST less depressed in high-lateral leads I and AVL Nonspecific ST and T wave abnormality precordial leads - minimal change Confirmed by Zeyad Thompson DO ([id number]) on 02/17/2017 3:10:57 PM
[2017-02-13] MEDS: SOLU-MEDROL IV SCH ×2 (05:55→17:44)
--- NOTE | 2017-02-13 06:27 | PROGRESS NOTE ---
DATE: 02/13/2017 SUBJECTIVE: Ms. Jacobs is a 71-year-old, white, female patient admitted with shortness of breath. Chest x-ray did reveal pulmonary edema. The patient also had symptoms suggestive of chest congestion, cough, expectoration. The patient does have underlying COPD. The patient is doing better. Shortness of breath improving. She denied any high-grade fever or chills. No nausea or vomiting. She did have vague chest pain. We did EKG which reveals sinus bradycardia and nonspecific ST-T wave changes. Her cardiac isoenzymes were negative. PHYSICAL EXAMINATION: Vital Signs: Her vital signs noted. Neck: Supple. No JVD. Lungs: Bilateral good air entry present. Few basal crepitations. CVS: S1 and S2 heard. A 2-3/6 systolic murmur at the apex and the right parasternal border. Abdomen: Soft, nontender. Bowel sounds present. 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 Able to move all 4 limbs. CONSIDERATION: 1. Patient admitted with shortness of breath. It is multifactorial. Chest x-ray did reveal pulmonary edema. The patient had an elevated proBNP. Her echocardiogram done last admission did reveal severe tricuspid regurgitation, moderate mitral regurgitation. 2. Chronic obstructive pulmonary disease exacerbation. The patient is on intravenous antibiotics, pulmonary toilet, small dose of steroid. 3. Atrial fibrillation with slow ventricular response. I am holding her beta chao. 4. Chronic pain. Her urine drug screen was negative for everything. 5. Patient does have a history of gastritis. 6. Osteoarthritis. 7. Situational depression. PLAN: Her labs and medication noted. We will continue current treatment and close observation. Overall plan discussed at length with the patient and she is in agreement. cc: Neo Alfaro MD
[2017-02-13] MEDS: PROTONIX PO SCH (06:30)
[2017-02-13 06:49] LABS: BASO% 0.1 % (0.0-0.8); EOS# 0.01 X1000 (0.0-0.7); EOS% 0.1 % (0.0-10.0); HEMOGLOBIN 12.4 g/dL (12.0-16.0); LYMPH# 0.49 X1000 (1.2-3.4); LYMPH% 6.4 % (20.5-51.1); MANUAL DIFF NEEDED? YES; MCH 27.9 PG (27-31); MCHC 32.6 g/dL (33-37); MCV 85.6 FL (81-99); MONO# 0.08 X1000 (0.11-0.59); MPV 11.9 FL (7.4-10.4); NEUT% 92.4 % (42.2-75.2); PLT 286 X1000 (130-400); RBC 4.44 XMIL (4.2-5.4)
[2017-02-13] MEDS ORDERED: LASIX IV ONE (07:00)
[2017-02-13 07:19] LABS: ALBUMIN 3.5 g/dL (3.5-5.0); CALCIUM 9.2 mg/dL (8.8-10.2); MAGNESIUM 2.3 mg/dL (1.5-2.7); POTASSIUM 3.4 mmol/L (3.5-5.1); TOTAL BILIRUBIN 0.58 mg/dL (0.20-1.00); TOTAL PROTEIN 6.7 g/dL (6.3-8.3)
[2017-02-13 07:31] LABS: FREE T4 0.96 ng/dL (0.93-1.70)
[2017-02-13 07:34] LABS: BANDS 8 % (0-1); LYMPHS 6 % (21-51); MONO 2 % (1-9)
[2017-02-13] MEDS: CORDARONE PO SCH (08:28)
[2017-02-13] MEDS: COZAAR PO SCH (08:29)
[2017-02-13] MEDS: NEURONTIN PO SCH ×3 (08:29→22:18)
[2017-02-13] MEDS: LEXAPRO PO SCH (08:30)
[2017-02-13] MEDS: NORVASC PO SCH ×2 (08:31→22:18)
[2017-02-13] MEDS: SYMBICORT 160/4.5 MICROGM INHALER INH SCH ×2 (09:31→21:00)
[2017-02-13] MEDS: NORCO-7.5 PO PRN ×2 (13:02→22:19)
[2017-02-13] MEDS: XARELTO PO SCH (17:44)
[2017-02-13] MEDS: ROCEPHIN 1 GM/NS 1 GM/50 ML IVPB IV SCH (17:44)
[2017-02-14] MEDS: DUONEB (A & A) INH SCH ×4 (03:10→21:06)
[2017-02-14] MEDS: SOLU-MEDROL IV SCH (06:11)
[2017-02-14] MEDS: NORCO-7.5 PO PRN ×3 (06:11→22:38)
[2017-02-14] MEDS: PROTONIX PO SCH (06:11)
[2017-02-14] MEDS ORDERED: KLOR-CON PO ONE (07:21)
[2017-02-14] MEDS: SYMBICORT 160/4.5 MICROGM INHALER INH SCH ×2 (07:32→21:06)
--- NOTE | 2017-02-14 07:41 | PROGRESS NOTE ---
DATE: 02/14/2017 SUBJECTIVE: Ms. Jacobs is feeling better. Chest congestion, cough improving. Shortness of breath is less. Tolerating food well. No nausea or vomiting. The patient did have good bowel movement. The patient is ambulating well. PHYSICAL EXAMINATION: Vital Signs: Her vital signs noted. Neck: Supple. No JVD. Lungs: Bilateral good air entry present. No rales or rhonchi. CVS: S1 and S2 heard. A 2/6 systolic murmur at the apex. Abdomen Soft, nontender. Bowel sounds present. Extremities: No cyanosis, clubbing. No acute DVT. DISTRICT LEADER: Alert, awake. Able to move all 4 limbs. CONSIDERATION: 1. Uncompensated congestive heart failure. 2. Chronic obstructive pulmonary disease exacerbation. 3. Moderate to severe tricuspid and moderate mitral regurgitation. 4. Paroxysmal atrial fibrillation, bradyarrhythmia. 5. Urinary tract infection. The patient is on intravenous antibiotics. 6. Low back pain. PLAN: Overall, patient is doing better. I changed her steroid to p.o. Continue IV antibiotics. Close observation. If clinical condition permits, we will plan discharging patient home tomorrow. I am going to repeat chest x-ray and appropriate blood work. We will follow urine culture results. cc: Neo Alfaro MD
[2017-02-14] MEDS: NEURONTIN PO SCH ×3 (08:10→22:38)
[2017-02-14] MEDS: NORVASC PO SCH ×2 (08:10→22:39)
[2017-02-14] MEDS: LEXAPRO PO SCH (08:10)
[2017-02-14] MEDS: CORDARONE PO SCH (08:10)
[2017-02-14] MEDS: LASIX PO SCH ×2 (08:10→22:38)
[2017-02-14] MEDS: COZAAR PO SCH (08:12)
[2017-02-14] MEDS ORDERED: PREDNISONE PO ONE (13:00)
[2017-02-14] MEDS: ROCEPHIN 1 GM/NS 1 GM/50 ML IVPB IV SCH (17:19)
[2017-02-14] MEDS: XARELTO PO SCH (17:19)
[2017-02-15] MEDS: DUONEB (A & A) INH SCH ×4 (03:30→21:40)
[2017-02-15] MEDS: PROTONIX PO SCH (06:16)
[2017-02-15] MEDS: NORCO-7.5 PO PRN ×3 (06:17→23:25)
[2017-02-15 06:22] LABS: BASO% 0.1 % (0.0-0.8); HEMATOCRIT 33.8 % (37.0-47.0); IMM GRAN# 0.05 X1000 (0.0-0.04); IMM GRAN% 0.3 % (0.0-0.5); LYMPH% 6.2 % (20.5-51.1); MANUAL DIFF NEEDED? YES; MCH 27.6 PG (27-31); MCHC 32.5 g/dL (33-37); MCV 84.9 FL (81-99); MONO% 2.8 % (1.7-9.3); MPV 11.7 FL (7.4-10.4); NEUT% 90.6 % (42.2-75.2); PLT 337 X1000 (130-400); RBC 3.98 XMIL (4.2-5.4)
[2017-02-15 06:38] LABS: LYMPHS 10 % (21-51); MONO 3 % (1-9)
[2017-02-15 06:39] LABS: LARGE PLATELETS OCCASIONAL
--- NOTE | 2017-02-15 07:03 | PROGRESS NOTE ---
DATE: 02/15/2017 SUBJECTIVE: Ms. Jacobs is doing better. She does have mild cough. No unusual expectoration. Shortness of breath improving. The patient is ambulating better. No high-grade fever or chills. No chest pain. PHYSICAL EXAMINATION: Vital Signs: Her vital signs noted. Neck: Supple. No JVD. Lungs: Bibasilar crepitations. Heart: S1 and S2 heard. A 2-3/6 systolic murmur at the apex. Abdomen: Soft, globular. Bowel sounds present. Extremities: No cyanosis, clubbing. No acute DVT. 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 Able to move all 4 limbs. LAB DATA: The patient's laboratory data done this morning did reveal leukocytosis with left shift, could be due to steroid. Chest x-ray and electrolytes, results are pending. PROBLEM LIST: 1. Shortness of breath, multifactorial. 2. Chronic obstructive pulmonary disease exacerbation. 3. Pulmonary edema. 4. The patient also had urinary tract infection. Urine culture grew Escherichia coli. 5. The patient does have bradyarrhythmia. PLAN: Her beta chao is on hold. Patient is tolerating it well. I am going to check blood work today and chest x-ray. Continue rest of the treatment. Ambulate the patient. After reviewing the labs, chest x-ray, we will make further recommendations. Overall plan discussed with the patient and she is in agreement. cc: Neo Alfaro MD
[2017-02-15 07:04] LABS: ALBUMIN 3.2 g/dL (3.5-5.0); CALCIUM 8.9 mg/dL (8.8-10.2); MAGNESIUM 2.1 mg/dL (1.5-2.7); POTASSIUM 4.7 mmol/L (3.5-5.1); TOTAL BILIRUBIN 0.26 mg/dL (0.20-1.00); TOTAL PROTEIN 5.9 g/dL (6.3-8.3)
[2017-02-15] MEDS ORDERED: PREDNISONE PO SCH (09:00)
--- NOTE | 2017-02-15 09:15 | Diag Imaging Result Doc PS360 ---
EXAM: CHEST-2 VIEWS HISTORY: hypoxia TECHNIQUE: Two views COMPARISON: 02/12/2017 FINDINGS: The lungs are well expanded. The heart remains mildly enlarged. Pulmonary edema is less pronounced than on the prior exam. No pleural effusions. No consolidation. There is a large calcified right hilar lymph node. IMPRESSION: Mild interval improvement. Electronically signed by Hemanth Wright 02/15/2017 9:12 AM
[2017-02-15] MEDS: SYMBICORT 160/4.5 MICROGM INHALER INH SCH ×2 (09:41→20:12)
[2017-02-15] MEDS: NEURONTIN PO SCH ×3 (10:51→20:16)
[2017-02-15] MEDS: COZAAR PO SCH (10:51)
[2017-02-15] MEDS: CORDARONE PO SCH (10:51)
[2017-02-15] MEDS: LASIX PO SCH (10:51)
[2017-02-15] MEDS: NORVASC PO SCH ×2 (10:54→20:17)
[2017-02-15] MEDS: LEXAPRO PO SCH (10:54)
[2017-02-15] MEDS: ROCEPHIN 1 GM/NS 1 GM/50 ML IVPB IV SCH (19:47)
[2017-02-15] MEDS: XARELTO PO SCH (19:48)
[2017-02-16] MEDS: DUONEB (A & A) INH SCH ×4 (04:05→21:35)
[2017-02-16] MEDS: PROTONIX PO SCH (06:47)
[2017-02-16] MEDS: NORCO-7.5 PO PRN ×2 (06:47→16:10)
[2017-02-16] MEDS ORDERED: LASIX IV ONE (06:47)
[2017-02-16] MEDS ORDERED: PREDNISONE PO SCH (06:50)
--- NOTE | 2017-02-16 07:14 | PROGRESS NOTE ---
DATE: 02/16/2017 SUBJECTIVELY: Ms. Jacobs is doing better. She still has cough and chest congestion. At times, she does get short of breath. No high-grade fever. Denied any nausea or vomiting. Her chest x- ray done yesterday reviewed, which did reveal minimal improvement in pulmonary edema. No dysuria or hematuria. No diarrhea. The patient does get short of breath with exertion. Patient admitted with COPD exacerbation and pulmonary edema. I held her Lasix yesterday because of deterioration in her renal function. OBJECTIVE: Vital signs: Noted. Neck: Supple. No JVD. Lungs: Bibasilar crepitations. Bibasilar few rales. Cardiovascular: S1 and S2 heard. A 2-3/6 systolic murmur at the apex. Abdomen: Soft, globular. Bowel sounds present. 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 Extremities: No acute DVT clinically. ASSESSMENT AND PLAN: The patient does have significant medical problems including shortness of breath, pulmonary edema, chronic obstructive pulmonary disease exacerbation. The patient is on oral steroid. She was on Lasix which I held yesterday. The patient does have significant tricuspid regurgitation and mitral regurgitation, pulmonary edema, acute kidney injury. I am going to decrease her Norvasc and Cozaar. Going to get a cardiology evaluation. Continue bronchodilator treatment. Close observation. Give her small dose of Lasix. Overall plan discussed with the patient. I do not think patient is ready to be discharged yet. cc: Neo Alfaro MD
[2017-02-16 07:24] LABS: MANUAL DIFF NEEDED? NO
[2017-02-16 07:27] LABS: BASO% 0.1 % (0.0-0.8); EOS# 0.01 X1000 (0.0-0.7); EOS% 0.1 % (0.0-10.0); HEMATOCRIT 32.2 % (37.0-47.0); HEMOGLOBIN 10.6 g/dL (12.0-16.0); IMM GRAN% 0.6 % (0.0-0.5); LYMPH# 1.84 X1000 (1.2-3.4); LYMPH% 11.7 % (20.5-51.1); MCH 27.6 PG (27-31); MCHC 32.9 g/dL (33-37); MCV 83.9 FL (81-99); MONO# 0.99 X1000 (0.11-0.59); MONO% 6.3 % (1.7-9.3); MPV 11.1 FL (7.4-10.4); NEUT% 81.2 % (42.2-75.2); PLT 335 X1000 (130-400); RBC 3.84 XMIL (4.2-5.4)
[2017-02-16 07:53] LABS: ALBUMIN 3.3 g/dL (3.5-5.0); CALCIUM 8.5 mg/dL (8.8-10.2); POTASSIUM 4.5 mmol/L (3.5-5.1); TOTAL BILIRUBIN 0.3 mg/dL (0.20-1.00); TOTAL PROTEIN 5.8 g/dL (6.3-8.3)
[2017-02-16] MEDS: SYMBICORT 160/4.5 MICROGM INHALER INH SCH ×2 (09:20→20:15)
[2017-02-16] MEDS: CORDARONE PO SCH (09:44)
[2017-02-16] MEDS: COZAAR PO SCH (09:44)
[2017-02-16] MEDS: NEURONTIN PO SCH ×3 (09:44→22:06)
[2017-02-16] MEDS: LEXAPRO PO SCH (09:44)
[2017-02-16] MEDS: NORVASC PO SCH ×2 (09:45→22:06)
[2017-02-16] MEDS ORDERED: SAMSCA PO ONE (12:55)
--- NOTE | 2017-02-16 15:37 | CONSULTATION ---
DATE OF CONSULTATION: 02/16/2017 REQUESTING PHYSICIAN: Dr. Alfaro REASON FOR CONSULTATION: Cough, dyspnea, CHF. HISTORY OF PRESENT ILLNESS: Ms. Jacobs is an unfortunate 71-year-old female known to me, who presented to the hospital with increasing dyspnea, cough, pleuritic chest discomfort. This has been going on for about a week. She felt weak, fatigued. Her chest x-ray at the time of initial presentation shows cardiomegaly with pulmonary edema. Subsequently a followup x-ray 3 days later showed mild interval improvement. Her initial blood work showed a creatinine of 1.3 and over the course of the past 2 days has risen to 2.1. The patient feels somewhat better, but she is still having a lot of coughing spells. PAST MEDICAL HISTORY: Positive for COPD and emphysema. She has congestive heart failure, mostly diastolic dysfunction. She had paroxysmal atrial fibrillation, hypertension, hyperlipidemia, gastric reflux, depression, osteoarthritis, obstructive sleep apnea syndrome, chronic pain syndrome. She is on home O2. PAST SURGICAL HISTORY: She has had arm surgery. She has had pelvic surgery. SOCIAL HISTORY: She is a , disabled, smoker but quit 10 years ago. She lives by herself. FAMILY HISTORY: Noncontributory. ALLERGIES: She is allergic to intravenous dye. HOME MEDICATIONS: Xarelto 20 daily, prednisone 10 mg daily, Protonix 40 daily, metoprolol 25 twice a day, losartan 50 daily, hydrocodone every 8 hours, gabapentin 300 mg 3 times a day, furosemide 40 daily, Lexapro 10 mg daily, budesonide 2 puffs twice a day, amlodipine 5 mg twice a day, amiodarone 200 daily, alprazolam 0.5 mg twice a day, albuterol 2 puffs 4 times a day. REVIEW OF SYSTEMS: Chronic dyspnea, occasional bouts of pneumonia in the past. Previous cardiac evaluation performed on her back in 04/2016 showed normal left ventricular function on the echocardiogram with moderate degree of mitral regurgitation, no diastolic dysfunction, pulmonary pressure of 40 mmHg. A 48-hour Holter showed presence of sinus rhythm with no arrhythmia. CT scan of the chest showed extensive emphysema with atherosclerosis at the level of the aorta. PHYSICAL EXAMINATION: Her blood pressure is 109/52, temperature 97.4, pulse 60, respirations 20. She is awake, elderly, appears to be older than her stated age. HEENT is unremarkable. Chest with diminished breath sounds with bilateral rhonchi, some end expiratory wheezing. Heart sounds are regular and rhythmic. She does have an occasional extrasystole. She has systolic murmur 1 to 2/6 in the aortic area. No gallop is noted. Abdomen is nontender, soft. No masses. No hepatomegaly. Extremities showed fairly good pulses. No edema. Neurologic: Follows commands. Moves all 4 extremities. No focal deficit. DIAGNOSTIC DATA: Blood work shows sodium 127, potassium 4.5, BUN is 61, creatinine 2.1, chloride 89, carbon dioxide 25. ProBNP is 1479, when she first came was 7026. Troponin levels have been checked multiple times, 4 times negative. EKG shows sinus bradycardia with no ischemic ST changes, and this EKG was done on day of admission. Right now her heart rate is more normal. IMPRESSION: 1. The patient presented with increasing dyspnea consistent with exacerbation of chronic obstructive pulmonary disease. She had pleuritic chest pain consistent with the same. She has CHF with diastolic dysfunction. Coronary artery disease could be contributing to this diastolic dysfunction. 2. Hyponatremia which is mild. 3. Renal insufficiency which is mild to moderate. 4. She has history of paroxysmal atrial fibrillation. 5. She has history of hypertension. RECOMMENDATIONS: At this point in time, we will continue present medical therapy. We will add Samsca to control the hyponatremia. I expect her to gradually get over this COPD exacerbation with present management. We may consider discontinuation of beta chao since the patient has been bradycardic and has exacerbation of COPD. We will be happy to arrange for a followup. Thank you again for the opportunity to participate in her evaluation. cc: MD Neo Morin MD
[2017-02-16] MEDS: ROCEPHIN 1 GM/NS 1 GM/50 ML IVPB IV SCH (16:06)
[2017-02-16] MEDS: XARELTO PO SCH (16:06)
[2017-02-16 20:27] LABS: CALCIUM 8.7 mg/dL (8.8-10.2)
[2017-02-17] MEDS: DUONEB (A & A) INH SCH (04:07)
[2017-02-17] MEDS: PROTONIX PO SCH (06:16)
[2017-02-17 06:23] LABS: MANUAL DIFF NEEDED? NO
[2017-02-17 06:31] LABS: BASO% 0.1 % (0.0-0.8); EOS# 0.08 X1000 (0.0-0.7); EOS% 0.8 % (0.0-10.0); HEMATOCRIT 31.2 % (37.0-47.0); HEMOGLOBIN 10.2 g/dL (12.0-16.0); IMM GRAN# 0.12 X1000 (0.0-0.04); IMM GRAN% 1.2 % (0.0-0.5); LYMPH% 16.4 % (20.5-51.1); MCH 27.8 PG (27-31); MCHC 32.7 g/dL (33-37); MONO# 0.77 X1000 (0.11-0.59); MONO% 7.4 % (1.7-9.3); NEUT% 74.1 % (42.2-75.2); PLT 300 X1000 (130-400); RBC 3.67 XMIL (4.2-5.4)
[2017-02-17 07:03] LABS: ALBUMIN 3.1 g/dL (3.5-5.0); CALCIUM 8.5 mg/dL (8.8-10.2); POTASSIUM 4.7 mmol/L (3.5-5.1); TOTAL BILIRUBIN 0.35 mg/dL (0.20-1.00); TOTAL PROTEIN 5.5 g/dL (6.3-8.3)
[2017-02-17 08:03] VITALS: BP 104/79
[2017-02-17] MEDS: CORDARONE PO SCH (08:33)
[2017-02-17] MEDS: LEXAPRO PO SCH (08:33)
[2017-02-17] MEDS: COZAAR PO SCH (08:33)
[2017-02-17] MEDS: NEURONTIN PO SCH (08:34)
[2017-02-17] MEDS: NORVASC PO SCH (08:34)
[2017-02-17] MEDS: NORCO-7.5 PO PRN (08:52)
--- NOTE | 2017-02-18 06:09 | DISCHARGE SUMMARY ---
ADMISSION DATE: 02/12/2017 DISCHARGE DATE: 02/17/2017 FINAL DISCHARGE DIAGNOSES: 1. Chronic obstructive pulmonary disease exacerbation. 2. Uncompensated diastolic heart failure. 3. Significant tricuspid and moderate mitral regurgitation. 4. Acute kidney injury. 5. Chronic low back pain. 6. Paroxysmal atrial fibrillation. 7. Hypertension. 8. Osteoarthritis. 9. Gastritis and reflux disease. 10. Urinary tract infection. 11. Peripheral neuropathy. HISTORY OF PRESENT ILLNESS: Ms. Jacobs is a 71-year-old, white, female patient admitted with chest congestion, cough, wheezing, shortness of breath not responding to outpatient treatment. The patient was getting more sick. She came to the emergency room. Evaluated by ER physician. Chest x-ray did reveal pulmonary edema. The patient also had some nausea, decreased exercise tolerance. The patient also had vague chest pain. Complaining of mild dysuria. Urinalysis did reveal UTI. HOSPITAL COURSE: The patient admitted to telemetry bed. The patient was treated with IV Lasix, IV antibiotics, steroid. We placed her on telemetry, bronchodilator treatment, and oxygen. Her clinical condition gradually improved. The patient's repeat blood work did reveal evidence of acute kidney injury. Her chest x-ray did show mild improvement. I did a cardiology consult and recommendations reviewed. Today, the patient was feeling better. As she was getting better, I offered her home health but patient refused. I am going to discharge her home today. PHYSICAL EXAMINATION: Vital Signs: Vital signs noted. Lungs: Bilateral good air entry present. Occasional wheezing. CVS: S1 and S2 heard. Abdomen: Soft, globular. Bowel sounds present. Extremities: No cyanosis, clubbing. No acute DVT. CABINET MAKER: Alert, awake, able to move all 4 limbs. LAB DATA: Revealed hemoglobin 10.2, hematocrit 31.2, WBC count 10.35, platelet count 300,000. Electrolytes were fairly benign. BUN 48, creatinine 1.9. Her proBNP improved. PLAN: Overall, patient received maximum benefit of hospitalization. Urine drug screen was negative. Chest x-ray was showing some improvement. Cardiology consult noted. We will discharge the patient home on tapering dose of prednisone, Augmentin. Gave her a prescription for nebulizer and medication, Lasix. Follow up with me next week. At that time, we will check blood work. In case of more distress, call us back or go to the emergency room. Overall discharge plan discussed at length with the patient and she is in agreement. cc: Neo Alfaro MD
== END 2017-02-17 11:19 | disposition home or self-care (01) ==
LOC: ED 09:56 → 4N 13:40
PROVIDERS: ADMIT Internal Medicine; ATTEND Internal Medicine